=== PATIENT | female | born 1960 | race Caucasian/White ===

== ENCOUNTER 2021-09-03 13:33 | Emergency (ER) | payer SELFPAY ==
--- OUTSIDE RECORDS SUMMARY | 2021-09-03 13:36 | XMS REPORT | Continuity of Care Document ---
:1960 Author Organization [facility] t Address [address] [place] [address] Care Team Providers Name Role Phone TRIP Primary Care Physician Unavailable Jovita YOUNG, G Attending Clinician Shavonne HUSSEIN Attending Clinician Unavailable Connie GEE, M Attending Clinician Unavailable Nancie Amin Attending Clinician Unavailable Physician, Primary or Family Admitting Clinician Unavailabl e Payers Payer Name Policy Type Policy Number Effective Date Expiration Date S mannie HIM SASHAETTER FROM [id number] 2021 [facility] 00:00:00 Problems Condition Condition Condition Status Onset Resolution Last Treating Co mments Source Name Details Category Date Date Treatment Clinician Date No known No known Disease Unive rs active active ity of problems problems [facility] Allergies, Adverse Reactions, Alerts Allergy Allergy Status Severity Reaction(s) Onset Inactive Treating Comm ents Source Name Type Date Date Clinician Tramadol Propensi Active Unknown - HEADACHE U nivers ty to See comments 04-30 ity of adverse 00:00: [place] reaction 00 Medical s Branch TRAMADOL DRUG Active Unknown-Cmnt Un devin INGREDI 9 ity of 00:00: [place] 00 Medical Branch No Known DA Active [facility] Allergie 6-27 Clear s 00:00: [place] 00 [facility] No Known DA Active U [facility] Allergie 6-27 Clear s 00:00: [place] 00 [facility] Hay Propensi Active Unknown - 2011-08 Per pt Unive rs Fever ty to See comments 0-06 seasonal it y of And adverse 00:00: grass [place] Allergy reaction 00 weeds Medical Relief s Branch HAY DRUG Active Unknown-Cmnt 2011-08 Univ ers FEVER 0-06 ity of AND 00:00: [place] ALLERGY 00 Medical RELIEF Branch Social History Social Habit Start Date Stop Date Quantity Comments Source History SDOH University o f Alcohol Frequency [place] M edical [facility] History SDMS University o f Alcohol Std [place] [facility] Drinks Branch History SDMS University o f Alcohol Binge [place] [facility] al Branch Exposure to Not sure [facility] SARS-CoV-2 [place] Medical (event) Branch Alcohol intake 2012-05-09 2012-05-09 Current University of 00:00:00 00:00:00 non-drinker of [facility] [place] alcohol Branch (finding) Alcohol Comment 2012-05-09 2012-05-09 used to drink as Uni versity of 00:00:00 00:00:00 a teenager [facility] Sex Ass[birth year] At [birth year] Universit y of 00:00:00 00:00:00 [facility] Smoking Status Start Date Stop Date Source Never smoker [facility] Branch Medications Ordered Filled Start Stop Current Ordering Indication Dosage Frequency Signature Comments Components Source Medication Medication Date Date Medication? Clinician (SIG) Name Name HYDROcodone 2011-08 Yes 1{tbl} Take 1 Tab Univers -acetaminop 0-06 by mouth 2 it y of hen (NORCO) 12:50: (two) [place] 5-325 mg 15 times Medical tablet daily. Branch traMADOL 2011-08 Yes 50mg Take 50 mg Uni vers (ULTRAM) 50 0-06 by mouth ity of mg tablet 12:50: every 6 [place] 15 (six) Medical hours as Branch needed. psyllium 2011-08 Yes 6g Take 6 g Unive rs (METAMUCIL) 0-06 by mouth ity of 0.52 gram 12:50: daily. [place] capsule 15 Medical Branch traZODONE 2011-08 Yes 150mg Take 150 Uni vers (DESYREL) 0-06 mg by ity of 100 mg 12:50: mouth at [place] tablet 15 bedtime. Medical Branch ALPRAZolam 2011-08 Yes 1mg Take 1 mg Un devin (XANAX) 1 0-06 by mouth 3 ity of mg tablet 12:50: (three) [place] 15 times Medical daily. Branch gabapentin 2011-08 Yes 300mg Take 300 Un devin (NEURONTIN) 0-06 mg by ity of 300 mg 12:50: mouth 2 [place] tablet 15 (two) Medical times Branch daily. prednisoLON 2011-08 Yes 1[drp] Place 1 U nivers E acetate 0-06 Drop in ity of (PRED-FORTE 12:50: right [place] ) 1 % 15 4 (four) Medical ophthalmic times Branch suspension daily. drops ALPRAZolam 2011-08 Yes 1mg Take 1 mg Un devin (XANAX) 1 0-06 by mouth 3 ity of mg tablet 12:50: (three) [place] 15 times Medical daily. Branch gabapentin 2011-08 Yes 300mg Take 300 Un devin (NEURONTIN) 0-06 mg by ity of 300 mg 12:50: mouth 2 [place] tablet 15 (two) Medical times Branch daily. prednisoLON 2011-08 Yes 1[drp] Place 1 U nivers E acetate 0-06 Drop in ity of (PRED-FORTE 12:50: right eye [place] ) 1 % 15 4 (four) Medical ophthalmic times Branch suspension daily. drops citalopram 2011-08 Yes 40mg Take 40 mg U nivers (CELEXA) 40 0-06 by mouth ity of mg tablet 12:50: daily. [place] [address] Medical Branch omeprazole 2011-08 Yes 40mg Take 40 mg U nivers (PRILOSEC) 0-06 by mouth ity o f 40 mg 12:50: daily. [place] capsule Medical Branch HYDROcodone 2011-08 Yes 1{tbl} Take 1 Tab Univers -acetaminop 0-06 by mouth 2 it y of hen (NORCO) 12:50: (two) [place] 5-325 mg 15 times Medical tablet daily. Branch citalopram 2011-08 Yes 40mg Take 40 mg U nivers (CELEXA) 40 0-06 by mouth ity of mg tablet 12:50: daily. [place] [address] Medical Branch traMADOL 2011-08 Yes 50mg Take 50 mg Uni vers (ULTRAM) 50 0-06 by mouth ity of mg tablet 12:50: every 6 [place] 15 (six) Medical hours as Branch needed. psyllium 2011-08 Yes 6g Take 6 g Unive rs (METAMUCIL) 0-06 by mouth ity of 0.52 gram 12:50: daily. [place] capsule 15 Medical Branch traZODONE 2011-08 Yes 150mg Take 150 Uni vers (DESYREL) 0-06 mg by ity of 100 mg 12:50: mouth at [place] tablet 15 bedtime. [facility] Branch omeprazole 2011-08 Yes 40mg Take 40 mg U nivers (PRILOSEC) 0-06 by mouth ity o f 40 mg 12:50: daily. [place] capsule 15 [facility] Vital Signs Vital Name Observation Time Observation Value Comments Source Systolic blood 2021-05-01 03:00:00 123 [facility] Diastolic blood 2021-05-01 03:00:00 78 mm[Hg] [facility] [place] Heart rate 2021-05-01 03:00:00 78 /min [facility] Respiratory rate 2021-05-01 03:00:00 26 /min [facility] Oxygen saturation in 2021-05-01 03:00:00 98 /min [facility] Arterial blood by [facility] [place] Pulse oximetry [place] Body temperature 2021-05-01 01:44:00 37.56 Vandana [facility] Body height 2021-05-01 01:44:00 177.8 cm [facility] Body weight 2021-05-01 01:44:00 83.915 kg [facility] BMI 2021-05-01 01:44:00 26.54 kg/m2 [facility] Procedures Procedure Date / Time Performed Performing Clinician Sourc e MAGNESIUM 2021-05-01 02:33:00 Hoa Hussein [facility] TROPONIN I 2021-05-01 02:33:00 Hoa Hussein [facility] COMP. METABOLIC PANEL 2021-05-01 02:33:00 Hoa Hussein [facility] ([id number]) [facility] CBC WITH DIFF 2021-05-01 02:33:00 Hoa Hussein [facility] URINALYSIS 2021-05-01 02:33:00 Hoa Hussein [facility] N-TERMINAL PRO-BNP 2021-05-01 02:33:00 Hoa Hussein [facility] NOTICE OF PRIVACY 2021-05-01 01:37:44 Doctor Unassigned, No Univ [facility] PRACTICES Name Medical Branch CONSENT/REFUSAL FOR 2021-05-01 01:37:01 [facility] Name Medical Branch TREATMENT Encounters Start End Encounter Admission Attending Care Care Encounter Source Date/Time Date/Time Type Type Clinicians Facility Department ID 2021-04-30 2021-04-30 Emergency [facility] [id number] Univers 20:49:00 23:18:00 [id number] [id number] [facility] 084 Branch 2021-04-30 2021-04-30 Emergency X [facility] ERT [id number] Univers 20:49:00 23:18:00 HOA valdez [facility] 2021-04-30 2021-04-30 Nurse Omayra Rosales [id number] Univers 00:00:00 00:00:00 Triage SERGE [id number] [facility] [id number] [facility] [id number] [facility] 019 Branch 2021-01-28 2021-01-28 Emergency EM KEVIN Amin SANJUANITA [id number] [facility] 18:49:00 21:59:00 Shaun [id number] [facility] Results Test Description Test Time Test Comments Results Result Comments Source TROPONIN I 2021-05-01 03:09:09 Test Item Value Reference Range Interpretation Comme nts TROPONIN I (test code = 0.001 ng/mL See_Comment [Au tomated message] The [id number]) system which ge nerated this result tra nsmitted reference range : <=0.034. The reference r radha was not used to int erpret this result as normal/abnormal . LIAN (test code = LIAN) Reference (Normal) Range (defined by the 99th percentile reference limit): <= 0.034 ng/mL Note: Cardiac troponin begins to rise 3-4 hours after the onset of ischemia. Repeat in 4-6 hours if the sample was drawn within 3-4 hours of the onset of the symptom and found normal. Diagnosis of myocardial injury is made with acute changes in cTn concentrations with at least one serial sample above the 99th percentile upper reference limit (URL), taken together with the patient's clinical presentation. Biotin has been reported to cause a negative bias, interpret results relative to patient's use of biotin. Lab Interpretation Normal (test code = 93836-8) [facility] [id number] 03:06:10 Test Item Value Reference Range Interpretation Comments NT-proBNP (test code 296 pg/mL See_Comment H [Autom ated = 3031805996) message] The system which generated this result transmitted reference range : <=125. The reference range was not used to interpret this result as normal/abnormal . LIAN (test code = LIAN) Biotin has been reported to cause a negative bias, interpret results relative to patient's use of biotin. Lab Interpretation Abnormal (test code = 25231-9) [facility] (25583)2021-05-01 02:59:06 Test Item Value Reference Range Interpretation Comments NA (test code = 138 mmol/L 135-145 3703268632) K (test code = 3.9 mmol/L 3.5-5.0 7834474523) CL (test code = 104 mmol/L 98-108 5247003579) CO2 TOTAL (test code = 26 mmol/L 23-31 2524740698) AGAP (test code = 2-16 4100221952) BUN (test code = 24 mg/dL 7-23 H 3591580908) GLUCOSE (test code = 100 mg/dL 70-110 8271401173) CREATININE (test code = 0.80 mg/dL 0.50-1.04 8190162381) TOTAL BILI (test code = 0.4 mg/dL 0.1-1.3 9248282081) CALCIUM (test code = 9.6 mg/dL 8.6-10.6 9456674812) T PROTEIN (test code = 7.4 g/dL 6.3-8.2 9991927957) ALBUMIN (test code = 4.4 g/dL 3.5-5.0 2758237513) ALK PHOS (test code = 76 U/L 34-122 8617882763) ALTv (test code = 16 U/L 1742-6) AST(SGOT) (test code = 24 U/L 13-40 7803961987) eGFR (test code = mL/min/1.73m2 6072081242) LIAN (test code = LIAN) Association of Glomerular Filtration Rate (GFR) and Staging of Kidney Disease* + --+ --+ ------+| GFR (mL/min/1.73 m2) ?| With Kidney Damage ?| ?Without Kidney Damage+ --------+ --------+ +| ?>90 ?| ?Stage one ?| ? Normal ?+ ---+ ---+ -------+| ?60-89 ?| ?Stage two ?| ? Decreased GFR ? + --+ --+ ------+| ?30-59 ?| ?Stage three ?| ? Stage three ? + --+ --+ ------+| ?15-29 ?| ?Stage four ? | ? Stage four ?+ ---+ ---+ -------+| ?<15 (or dialysis) ? ?| ?Stage five ? | ? Stage five ?+ ---+ ---+ -------+ *Each stage assumes the associated GFR level has been in effect for at least three months. ?Stages 1 to 5, with or without kidney disease, indicate chronic kidney disease. Notes: Determination of stages one and two (with eGFR >59mL/min/1.73 m2) requires estimation of kidney damage for at least three months as defined by structural or functional abnormalities of the kidney, manifested by either:Pathological abnormalities or Markers of kidney damage (including abnormalities in the composition of the blood or urine or abnormalities in imaging tests). Lab Interpretation Abnormal (test code = 49679-0) [facility]2021-[facility] 02:59:06 Test Item Value Reference Range Interpretation Comments MAGNESIUM (test code = 4464258026) 2.3 mg/dL 1.7-2.4 Lab Interpretation (test code = Normal 49040-9) [facility] WITH [id number] 02:52:46 Test Item Value Reference Range Interpretation Comments WBC (test code = See_Comment [Automated 0090-2) message] The sy stem which generated this result transmitted reference range : 4.30 - 11.10 10*3/?L. The reference range was not used to interpret this result as normal/abnormal . RBC (test code = See_Comment [Automated 789-8) message] The sy stem which generated this result transmitted reference range : 3.93 - 5.25 10*6/?L. The reference range was not used to interpret this result as normal/abnormal . HGB (test code = 12.0 g/dL 11.6-15.0 718-7) HCT (test code = 37.5 % 35.7-45.2 4544-3) MCV (test code = 87.4 fL 80.6-95.5 787-2) MCH (test code = 28.0 pg 25.9-32.8 785-6) MCHC (test code = 32.0 g/dL 31.6-35.1 786-4) RDW-SD (test code = 47.8 fL 39.0-49.9 02100-8) RDW-CV (test code = 14.8 % 12.0-15.5 788-0) PLT (test code = See_Comment H [Automated 777-3) message] The sy stem which generated this result transmitted reference range : 166 - 358 10*3/ ?L. The reference r radha was not used to interpret this result as normal/abnormal . MPV (test code = 10.5 fL 9.5-12.9 73383-5) NRBC/100 WBC (test See_Comment [Automat ed code = 0950672986) message] The system which generated this result transmitted reference range : 0.0 - 10.0 /100 WBCs. The refer ence range was not u sed to interpret th is result as normal/abnormal . NRBC x10^3 (test code <0.01 See_Comment [Auto mated = 6514072280) message] The s ystem which generated this result transmitted reference range : 10*3/?L. The reference range was not used to interpret this result as normal/abnormal . GRAN MAT (NEUT) % 48.8 % (test code = 770-8) IMM GRAN % (test code 0.50 % = 9542884209) LYMPH % (test code = 40.7 % 736-9) MONO % (test code = 9.6 % 5905-5) EOS % (test code = 0.0 % 713-8) BASO % (test code = 0.4 % 706-2) GRAN MAT x10^3(ANC) 3.69 10*3/uL 1.88-7.09 (test code = 2948635551) IMM GRAN x10^3 (test 0.04 10*3/uL 0.00-0.06 code = 1770376215) LYMPH x10^3 (test code 3.08 10*3/uL 1.32-3.29 = 731-0) MONO x10^3 (test code 0.73 10*3/uL 0.33-0.92 = 742-7) EOS x10^3 (test code = <0.03 0.03-0.39 L 711-2) BASO x10^3 (test code 0.03 10*3/uL 0.01-0.07 = 704-7) Lab Interpretation Abnormal (test code = 26946-0) [facility] PELVIS [id number] 20:40:00 [facility] : 1960 Sex: F Name: GIO ESTRELLA [facility] : 1960 Age/S: 60 / F [address] [place] [address] Unit #: [id number] Loc: [place] [address] Phys: Shaun Amin MD Acct: [id number] Dis Date: Status: REG ER PHONE #: [phone] Exam Date: 01/28/20212018 FAX #: [phone] Reason: n/v, constipation. hx molly and EMANUEL, eval sbo EXAMS: CPT CODE: [id number] CT ABD PELVIS W/CONT 28455 CT abdomen and pelvis with contrast dated 01/28/2021 INDICATION: Nausea and vomiting. Possible small bowel obstruction. COMPARISON: None. TECHNIQUE: A CT of the abdomen pelvis was performed using helical images from the thoracic outlet through the pubicsymphysis with subsequent sagittal and coronal reconstruction. IV CONTRAST: 100 cc ofIsovue-300 GI CONTRAST: None. CT imaging performed at this location utilizes radiation dose optimization techniques which include one or more of the followin) Automated exposure control; 2) Adjustment of mA and/or kV; 3) Use of iterative reconstructive technique. CT radiation dose DLP (mGy-cm): 775. FINDINGS: SOLID ORGANS: No acute CT abnormalities of the liver, spleen, pancreas, adrenal glands or kidneys are detected. There is no CT evidence of acute renal collecting system obstruction or calcified renal collecting system stone. BILIARY: The patient is status post cholecystectomy. 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 BOWEL: Bowel assessment is limited by the absence of bowel contrast. No gross abnormalities of the stomach or duodenum are identified. No small bowel dilatation is present to suggest obstruction. The appendix is well visualized and is not acutely inflamed. Several diverticula of the sigmoid colon are noted. There is no evidence of acute diverticulitis, acute inflammatory colonic wall thickening or colonic obstruction. PERITONEUM: There is no evidence of free intraperitoneal air or significant free intraperitoneal fluid. RETROPERITONEUM: The abdominal aorta demonstrates no evidence of aneurysm or dissection. There is no evidence of retroperitoneal mass or adenopathy. PELVIS: The patient is status posthysterectomy. The ovaries are not PAGE 1 Signed Report (CONTINUED) Name: GIO ESTRELLA [facility] : 1960 Age/S: 60 / F [address] [place] [address] Unit #: [id number] Loc: [place] [address] Phys: Shaun Amin MD Acct: [id number] Dis Date: Status: REG ER PHONE #: [phone] Exam Date: 01/28/20212018 FAX #: [phone] Reason: n/v, constipation. hx molly and EMANUEL, eval sbo EXAMS: CPT CODE: [id number] CT ABD PELVIS W/CONT 55025 < Continued> identified and may be surgically absent. No adnexal masses or enlarged pelvic lymph nodes are identified. The bladder has an unremarkable appearance. LOWER CHEST: The lung bases appear clear of acute disease. ADDITIONAL FINDINGS: None. IMPRESSION: 1. No acute CT abnormalities of the abdomen or pelvis are detected. SL: 131 at 2039 Reported and signed by: Nhan Oropeza M.D. CC: Shaun Amin MD Technologist:Akbar Marshall, RT(R)(CT) CTDI: DLP: Trnscb Date/Time: 01/28/2021 (2039) Robin Orig Print D/T: S: 01/28/2021 (2043) PAGE 2 Signed ReportCOMPREHENSIVE METABOLIC [id number] 20:11:00 Test Item Value Reference Range Interpretation Comments SODIUM (test code = NA) 138 mEq/L 134-147 N POTASSIUM (test code = 3.8 mEq/L 3.4-5.0 N K) CHLORIDE (test code = 103 mEq/L 100-108 N CL) CARBON DIOXIDE (test 28 mEq/l 21-33 N code = CO2) ANION GAP (test code = 11 0-20 N GAP) GLUCOSE (test code = 93 mg/dL 70-110 N GLU) BLOOD UREA NITROGEN 10 mg/dL 7-18 N (test code = BUN) GLOMERULAR FILTRATION 56.6 80-90 L Units of measure = RATE (test code = GFR) ml/mi n/1.73 m2 CREATININE (test code = 1.0 mg/dL 0.6-1.3 N CREAT) TOTAL PROTEIN (test 7.7 g/dL 6.4-8.2 N code = PROT) ALBUMIN (test code = 4.20 g/dL 3.4-5.0 N ALB) CALCIUM (test code = 10.0 mg/dL 8.0-10.5 N CA) BILIRUBIN TOTAL (test 0.40 mg/dL 0.0-1.0 N code = BILT) SGOT/AST (test code = 18 IUnit/L 15-37 N AST) SGPT/ALT (test code = 14 IUnit/L 30-65 L ALT) ALKALINE PHOSPHATASE 98 IUnit/L 20-125 N TOTAL (test code = ALKP) [id number] 20:11:00 Test Item Value Reference Range Interpretation Comments LIPASE (test code = LIP) 44 U/L 13-57 N [id number] 20:11:00 Test Item Value Reference Range Interpretation Comments TROPONIN-I < 0.006 ng/mL 0.000-0.045 N Negative: <= (test code = 0.045 Positive: TROPI) >= 0.046 Correl ation with serial results, other cardiac markers andclinical findings is nec essary to determine the clinicalsignifi cance of this result. Results using different metho dologies should not be c omparedto one another as linda titative results may richa y by method. COMPREHENSIVE METABOLIC [id number] 20:07:00 Test Item Value Reference Range Interpretation Comments SODIUM (test code = NA) 138 mEq/L 134-147 N POTASSIUM (test code = 3.8 mEq/L 3.4-5.0 N K) CHLORIDE (test code = 103 mEq/L 100-108 N CL) CARBON DIOXIDE (test 28 mEq/l 21-33 N code = CO2) ANION GAP (test code = 11 0-20 N GAP) GLUCOSE (test code = 93 mg/dL 70-110 N GLU) BLOOD UREA NITROGEN 10 mg/dL 7-18 N (test code = BUN) GLOMERULAR FILTRATION 56.6 80-90 L Units of measure = RATE (test code = GFR) ml/mi n/1.73 m2 CREATININE (test code = 1.0 mg/dL 0.6-1.3 N CREAT) TOTAL PROTEIN (test g/dL 6.4-8.2 code = PROT) ALBUMIN (test code = g/dL 3.4-5.0 ALB) CALCIUM (test code = 10.0 mg/dL 8.0-10.5 N CA) BILIRUBIN TOTAL (test mg/dL 0.0-1.0 code = BILT) SGOT/AST (test code = IUnit/L 15-37 AST) SGPT/ALT (test code = IUnit/L 30-65 ALT) ALKALINE PHOSPHATASE IUnit/L 20-125 TOTAL (test code = ALKP) [id number] 20:07:00 Test Item Value Reference Range Interpretation Comments LIPASE (test code = LIP) U/L 13-57 [id number] 20:07:00 Test Item Value Reference Range Interpretation Comments TROPONIN-I < 0.006 ng/mL 0.000-0.045 N Negative: <= (test code = 0.045 Positive: TROPI) >= 0.046 Correl ation with serial results, other cardiac markers andclinical findings is nec essary to determine the clinicalsignifi cance of this result. Results using different metho dologies should not be c omparedto one another as linda titative results may richa y by method. UA RFLX MICR CULT IF [id number] 20:00:00 Test Item Value Reference Range Interpretation Comments UA COLOR (test code = COLU) YELLOW YEL/STRAW UA APPEARANCE (test code = CLEAR CLEAR APPU) UA GLUCOSE DIPSTICK (test code NEGATIVE NEGATIVE = DGLUU) UA BILIRUBIN DIPSTICK (test NEGATIVE NEGATIVE code = BILU) UA KETONE DIPSTICK (test code NEGATIVE NEGATIVE = KETU) UA SPECIFIC GRAVITY (test code 1.005 1.005-1.030 N = SGU) UA BLOOD DIPSTICK (test code = NEGATIVE NEGATIVE JIMENEZ) UA PH DIPSTICK (test code = 9.0 5.0-7.0 H DARNELL) UA PROTEIN DIPSTICK (test code NEGATIVE NEGATIVE = PROU) UA UROBILINIOGEN DIPSTICK 0.2 mg/dL 0.2-1.0 (test code = URO) UA NITRITE DIPSTICK (test code NEGATIVE NEGATIVE = GORDO) UA LEUKOCYTE ESTERASE DIPSTICK TRACE NEGATIVE A (test code = LEUU) UA WBC (test code = WBCU) 4-9 WBC/HPF 0-3 A UA RBC (test code = RBCU) 0-3 RBC/HPF 0-3 UA WBC NO REFLEX (test code = 4-9 WBC/HPF 0-3 A WBCUCL) UA BACTERIA (test code = BACU) NONE SEEN /HPF NONE SEEN UA SQUAMOUS CELLS (test code = 0-5 /HPF NONE SEEN SQU) Indication for culture: Dysuria/FrequencySpecimen Description: CLEAN CATCH CBC W/AUTO [id number] 19:55:00 Test Item Value Reference Range Interpretation Comments WHITE BLOOD CELL (test code = 7.5 x10 3/uL 4.5-11.0 N WBC) RED BLOOD CELL (test code = 4.53 x10 6/uL 3.54-5.02 N RBC) HEMOGLOBIN (test code = HGB) 12.2 g/dL 11.0-15.0 N HEMATOCRIT (test code = HCT) 38.0 % 33.0-45.0 N MEAN CELL VOLUME (test code = 83.9 fL 81.0-99.0 N MCV) MEAN CELL HGB (test code = MCH) 26.9 pg 27.0-33.0 L MEAN CELL HGB CONCETRATION 32.1 g/dL 33.0-37.0 L (test code = MCHC) RED CELL DISTRIBUTION WIDTH CV 15.2 % 11.5-14.5 H (test code = RDW) RED CELL DISTRIBUTION WIDTH SD 46.0 fL 37.0-54.0 N (test code = RDW-SD) PLATELET COUNT (test code = 404 x10 3/uL 150-400 H PLT) MEAN PLATELET VOLUME (test code 10.0 fL 7.0-9.0 H = MPV) NEUTROPHIL % (test code = NT%) 49.0 % 56.0-77.0 L IMMATURE GRANULOCYTE % (test 0.3 % 0.0-2.0 N code = IG%) LYMPHOCYTE % (test code = LY%) 40.1 % 14.0-32.0 H MONOCYTE % (test code = MO%) 10.1 % 4.8-9.0 H EOSINOPHIL % (test code = EO%) 0.0 % 0.3-3.7 L BASOPHIL % (test code = BA%) 0.5 % 0.0-2.0 N NUCLEATED RBC % (test code = 0.0 % 0-0 N NRBC%) NEUTROPHIL # (test code = NT#) 3.65 x10 3/uL 2.0-7.6 N IMMATURE GRANULOCYTE # (test 0.02 x10 3/uL 0.00-0.03 N code = IG#) LYMPHOCYTE # (test code = LY#) 2.99 x10 3/uL 1.0-3.8 N MONOCYTE # (test code = MO#) 0.75 x10 3/uL 0.1-0.8 N EOSINOPHIL # (test code = EO#) 0.00 x10 3/uL 0.0-0.2 N BASOPHIL # (test code = BA#) 0.04 x10 3/uL 0.0-0.2 N NUCLEATED RBC # (test code = 0.00 x10 3/uL 0.0-0.1 N NRBC#) MANUAL DIFF REQUIRED (test code NO = MDIFF) CBC W/AUTO [id number] 19:52:00 Test Item Value Reference Range Interpretation Comments WHITE BLOOD CELL (test code = WBC) x10 3/uL 4.5-11.0 RED BLOOD CELL (test code = RBC) x10 6/uL 3.54-5.02 HEMOGLOBIN (test code = HGB) 12.2 g/dL 11.0-15.0 N HEMATOCRIT (test code = HCT) 38.0 % 33.0-45.0 N MEAN CELL VOLUME (test code = MCV) fL 81.0-99.0 MEAN CELL HGB (test code = MCH) pg 27.0-33.0 MEAN CELL HGB CONCETRATION (test g/dL 33.0-37.0 code = MCHC) RED CELL DISTRIBUTION WIDTH CV % 11.5-14.5 (test code = RDW) PLATELET COUNT (test code = PLT) x10 3/uL 150-400 NEUTROPHIL % (test code = NT%) % 56.0-77.0 LYMPHOCYTE % (test code = LY%) % 14.0-32.0 NEUTROPHIL # (test code = NT#) x10 3/uL 2.0-7.6 LYMPHOCYTE # (test code = LY#) x10 3/uL 1.0-3.8 MANUAL DIFF REQUIRED (test code = MDIFF)"
--- NOTE | 2021-09-03 15:55 | RAD REPORT ---
EXAM DESCRIPTION: RAD - Wrist Right 3 View - 09/03/2021 3:38 pm CLINICAL HISTORY: fall 3 weeks ago;Pain COMPARISON: No comparisons FINDINGS/IMPRESSION: No acute fracture. No malalignment. No significant focal degenerative changes.
--- NOTE | 2021-09-03 15:56 | RAD REPORT ---
EXAM DESCRIPTION: RAD - Knee Right 3 View - 09/03/2021 3:38 pm CLINICAL HISTORY: fall 3 weeks ago;Pain COMPARISON: No comparisons FINDINGS: No acute fracture. No malalignment. No significant focal degenerative changes. Small nonsp ecific knee effusion. IMPRESSION: No acute osseous abnormality involving the right knee.
--- NOTE | 2021-09-03 16:12 | ER ---
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 Reports that jh6 she landed on concrete and has had swelling and pain to rt knee. Coronavirus screen: Vaccine status: Patient reports receiving the 2nd dose of the covid vaccine. Ebola Screen: Patient denies travel to an Ebola-affected area in the 21 days before illness onset. Initial Sepsis Screen: Does the patient meet any 2 criteria? No. Patient's initial sepsis screen is negative. Does the patient have a suspected source of infection? No. Patient's initial sepsis screen is negative. Risk Assessment: Do you want to hurt yourself or someone else? Patient reports no desire to harm self or others. Onset of symptoms was August 14, 2021. 13:50 Method Of Arrival: Ambulatory [facility] 13:50 Acuity: GRADY 4 [facility] Triage Assessment: 13:53 General: Appears in no apparent distress. Behavior is calm, cooperative. Pain: 6 Complains of pain in right leg Pain currently is 1 out of 10 on a pain scale. Quality of pain is described as sharp. Historical: - Allergies: 13:52 Tramadol HCl; [facility] - Immunization history:: Adult Immunizations up to date, Client reports receiving the 2nd dose of the Covid vaccine. - Social history:: Smoking status: Patient reports the use of cigarette tobacco products, Patient denies any tobacco usage or history of. Screenin:54 Abuse screen: Denies threats or abuse. Nutritional screening: No deficits noted. [facility] Tuberculosis screening: No symptoms or risk factors identified. Fall Risk None identified. Assessment: 16:27 Reassessment: Patient appears in no apparent distress at this time. No changes from ld1 previously documented assessment. Patient and/or family updated on plan of care and expected duration. Pain level reassessed. Patient is alert, oriented x 3, equal unlabored respirations, skin warm/dry/pink. Vital Signs: 13:50 BP 145 / 74; Pulse 70; Resp 18; Temp 98.4; Pulse Ox 100% on R/A; Weight 77.11 kg; 6 Height 5 ft. 0 in. (152.40 cm); Pain 1/10; 13:50 Body Mass Index 33.20 (77.11 kg, 152.40 cm) [facility] ED Course: 13:36 Patient arrived in ED. am2 13:36 Rafael Magana MD is Private Physician. am2 13:52 Triage completed. [facility] 14:36 Gutierrez Williamson PA is PHCP. cp 14:36 Cliff Seals MD is Attending Physician. cp 15:38 XRAY Knee RIGHT 3 view In Process Unspecified. EDMS 15:38 XRAY Wrist RIGHT 3 view In Process Unspecified. EDMS 15:49 Velcro wrist splint applied to right wrist. mh5 15:50 Patient has correct armband on for positive identification. Bed in low position. Call 5 light in reach. 16:10 Willard Buck MD is Referral Physician. cp 16:15 Samia Perez, MARLEN is Primary Nurse. 16:27 No provider procedures requiring assistance completed. Patient did not have IV access ld1 during this emergency room visit. 16:27 Arm band placed on right wrist. ld1 Administered Medications: No medications were administered Outcome: 16:12 Discharge ordered by MD. cp 16:27 Discharged to home ambulatory. ld1 16:27 Condition: stable 16:27 Discharge instructions given to patient, Instructed on discharge instructions, follow up and referral plans. Demonstrated understanding of instructions, follow-up care. 16:28 Patient left the ED. ld1 Addendum: 09/05/2021 13:13 Addendum: COVID-19 Result: Negative result given to RN to notify pt. Contacted by: alber Buchanan RN. Signatures: Dispatcher [employer] María Garber RN RN Samia Perez RN RN Gutierrez Williamson PA PA Beena Pena [facility] Rosmery Coates am2 Estefanía Rodríguez RN RN 1 Valarie Clarke RN RN [facility]
--- NOTE | 2021-09-03 16:13 | EDPHYS ---
Physician Documentation [facility] Name: Debbie Albright Age: 61 yrs Sex: Female : 1960 Arrival Date: 09/03/2021 Time: 13:36 Bed DX1 Private MD: Rafael Magana ED Physician Cliff Seals HPI: 09/03 15:05 This 61 yrs old Female presents to ER via Ambulatory with complaints of Fall Injury, cp Knee Pain - swelling. 15:05 Details of fall: The patient fell from an upright position, while walking. Onset: The cp symptoms/episode began/occurred 3 week(s) ago. Associated injuries: The patient sustained right knee, painful injury, right wrist, painful injury. Severity of symptoms: in the emergency department the symptoms are unchanged, despite home interventions. Historical: - Allergies: 13:52 Tramadol HCl; jh6 - Immunization history:: Adult Immunizations up to date, Client reports receiving the 2nd dose of the Covid vaccine. - Social history:: Smoking status: Patient reports the use of cigarette tobacco products, Patient denies any tobacco usage or history of. ROS: 15:10 Constitutional: Negative for chills, fever, poor PO intake. cp 15:10 Respiratory: Negative for cough. cp 15:10 MS/extremity: Positive for pain, tenderness, of the right wrist and right knee, Negative for decreased range of motion, deformity. 15:10 Neuro: Negative for altered mental status, headache. 15:10 All other systems are negative. Exam: 15:30 Head/Face: Normocephalic, atraumatic. cp 15:30 Constitutional: The patient appears in no acute distress, alert, awake, non-toxic, well developed, well nourished. 15:30 ENT: External ear(s): are unremarkable, Nose: is normal, Posterior pharynx: Airway: no evidence of obstruction, patent, Tonsils: no enlargement, no erythema, no exudate, Voice: is normal. 15:30 Chest/axilla: Inspection: normal. 15:30 Cardiovascular: Rate: normal. 15:30 Respiratory: the patient does not display signs of respiratory distress, Respirations: normal, no use of accessory muscles, no retractions, labored breathing, is not present. 15:30 Musculoskeletal/extremity: Extremities: grossly normal except: noted in the right wrist: pain, There is no evidence of decreased ROM, deformity, noted in the right knee: pain, tenderness, no evidence of decreased ROM, deformity, joint line tenderness, ROM: limited active range of motion due to pain, in the right wrist and right knee. Vital Signs: 13:50 BP 145 / 74; Pulse 70; Resp 18; Temp 98.4; Pulse Ox 100% on R/A; Weight 77.11 kg; 6 Height 5 ft. 0 in. (152.40 cm); Pain 1/10; 13:50 Body Mass Index 33.20 (77.11 kg, 152.40 cm) [facility] MDM: 14:36 Patient medically screened. cp 16:10 Data reviewed: vital signs, nurses notes, radiologic studies, plain films. cp 16:10 Differential diagnosis: contusion, fracture, sprain, strain. Test interpretation: by ED cp physician or midlevel provider: plain radiologic studies. ED course: Patient c/o runny nose, sore throat and would like testing for COVID-19. 16:11 Counseling: I had a detailed discussion with the patient and/or guardian regarding: the cp historical points, exam findings, and any diagnostic results supporting the discharge/admit diagnosis, radiology results, to return to the emergency department if symptoms worsen or persist or if there are any questions or concerns that arise at home. 16:11 Response to treatment: the patient's symptoms have mildly improved after treatment, and cp as a result, I will discharge patient. 09/03 16:19 Order name: COVID 19 CPL (Document "Date of Onset" if Symptomatic) cp 09/03 15:01 Order name: XRAY Knee RIGHT 3 view; Complete Time: 15:58 cp 09/03 15:58 Interpretation: Report reviewed. cp 09/03 15:01 Order name: XRAY Wrist RIGHT 3 view; Complete Time: 15:58 cp 09/03 15:58 Interpretation: Report reviewed. cp 09/03 15:44 Order name: Wrist Splint; Complete Time: 15:49 cp Administered Medications: No medications were administered Disposition: 16:20 Chart complete. cp 09/04 09:11 Co-signature as Attending Physician, Cliff Seals MD. rn Disposition Summary: 09/03/21 16:12 Discharge Ordered Location: Home cp Problem: new cp Symptoms: have improved cp Condition: Stable cp Diagnosis - Pain in right knee - from fall cp - Pain in right wrist - from fall cp - Acute upper respiratory infection, unspecified cp Followup: cp - With: Willard Buck MD - When: 2 - 3 days - Reason: right knee pain and right wrist pain Discharge Instructions: - Discharge Summary Sheet cp - Wrist Pain, Adult cp - Acute Knee Pain, Adult cp - COVID-19 cp - COVID-19: What Your Test Results Mean - [facility] cp - 3 Kee Steps to Take While Waiting for Your COVID-19 Test Result - [facility] cp - 10 Things You Can Do to Manage Your COVID-19 Symptoms at Home - [facility] cp - COVID-19: Quarantine vs. Isolation - [facility] cp Forms: - Medication Reconciliation Form cp - Thank You Letter cp - Antibiotic Education cp - Prescription Opioid Use cp Prescriptions: - Diclofenac Sodium 75 mg Oral Tablet Sustained Release - take 1 tablet by ORAL route 2 times per day; 30 tablet; Refills: 0, Product cp Selection Permitted Signatures: Dispatcher [employer] EDCliff Barragan MD MD rn Gutierrez Williamson PA PA cp Valarie Clarke, RN RN jh6
[2021-09-03 16:55] VITALS: BP 145/74; TEMP 98.4; O2SAT 100
== END 2021-09-03 16:28 | disposition home or self-care (01) ==
LOC: ER 13:33
PROC: 2W3CX1Z Immobilization of Right Lower Arm using Splint (ICD-10-PCS; principal; 2021-09-03)
DX: M25.561 Pain in right knee (principal); M25.531 Pain in right wrist; W19.XXXA Unspecified fall, initial encounter; J06.9 Acute upper respiratory infection, unspecified; F17.210 Nicotine dependence, cigarettes, uncomplicated; Z88.6 Allergy status to analgesic agent; Z20.822 Contact with and (suspected) exposure to COVID-19
CPT/HCPCS: 99283; U0002

== ENCOUNTER 2021-12-19 11:03 | Emergency (ER) | payer SELFPAY ==
--- OUTSIDE RECORDS SUMMARY | 2021-12-19 11:06 | XMS REPORT | Continuity of Care Document ---
:1960 Author Organization [facility] t Address [address] [place] [address] Care Team Providers Name Role Phone TRIP Primary Care Physician Unavailable Shavonne Hussein NP Attending Clinician Shavonne HUSSEIN Attending Clinician Unavailable Nancie Amin Attending Clinician Unavailable Physician, Primary or Family Admitting Clinician Unavailabl e Payers Payer Name Policy Type Policy Number Effective Date Expiration Date S mannie HIM AMBETTER FROM [id number] 2021 [facility] 00:00:00 Problems Condition Condition Condition Status Onset Resolution Last Treating Co mments Source Name Details Category Date Date Treatment Clinician Date No known No known Disease Unive rs active active ity of problems problems [place] [facility] Allergies, Adverse Reactions, Alerts Allergy Allergy Status [...] Allergie 6-27 Clear s 00:00: Bold[place] 00 [facility] No Known DA Active U [facility] Allergie 6-27 Clear s 00:00: [place] 00 [facility] Hay Propensi Active Unknown - 2011-08 Per [...] History SDOH University o f Alcohol Frequency [place] [facility] History SDOH University o f Alcohol Std [place] [facility] Drinks Branch History SDMI University o f Alcohol Binge [place] [facility] Exposure to Not sure [facility] SARS-CoV-2 [place] [facility] (event) Branch Alcohol intake 2012-05-09 2012-05-09 Current University of 00:00:00 00:00:00 non-drinker of [facility] alcohol Branch (finding) Alcohol Comment 2012-05-09 2012-05-09 used to drink as Uni versity of 00:00:00 00:00:00 a teenager [facility] Sex Assigned At [birth year] Universit y of 00:00:00 00:00:00 [facility] Smoking Status Start Date Stop Date Source Never smoker [facility] Medical Branch Medications Ordered Filled Start Stop Current Ordering Indication Dosage Frequency Signature Comments Components Source Medication Medication Date Date Medication? Clinician (SIG) Name Name ALPRAZolam 2011-08 Yes 1mg Take 1 mg Un devin (XANAX) 1 0-06 by mouth 3 ity of mg tablet 12:50: (three) [place] 15 times Medical daily. Branch gabapentin 2011-08 [...] mouth ity of mg tablet 12:50: daily. [place] [address] Medical Branch omeprazole 2011-08 Yes 40mg Take 40 mg U nivers (PRILOSEC) 0-06 by mouth ity o f 40 mg 12:50: daily. [place] [address] Medical Branch HYDROcodone 2011-08 Yes 1{tbl} Take [...] mouth ity of 0.52 gram 12:50: daily. [place] capsule 15 Medical Branch traZODONE 2011-08 Yes 150mg Take 150 Uni vers (DESYREL) 0-06 mg by ity of 100 mg 12:50: mouth at [place] tablet 15 bedtime. [facility] Vital Signs Vital Name Observation Time Observation Value Comments Source Systolic blood 2021-05-01 03:00:00 123 mm[facility]Hg[facility] Diastolic blood 2021-05-01 03:00:00 78 mm[Hg] [facility] 2021-05-01 03:00:00 78 /min [facility] Respiratory rate 2021-05-01 03:00:00 26 /min [facility] Oxygen saturation in 2021-05-01 03:00:00 98 /min [facility] Arterial blood by [facility] Pulse oximetry [place] Body temperature 2021-05-01 01:44:00 37.56 [facility] Body height 2021-05-01 01:44:00 177.8 cm [facility] Body weight 2021-05-01 01:44:00 83.915 kg [facility] BMI 2021-05-01 01:44:00 26.54 kg/m2 [facility] Procedures Procedure Date / Time Performed Performing Clinician Sourc e MAGNESIUM 2021-05-01 02:33:00 Hoa Hussein [facility] TROPONIN I 2021-05-01 02:33:00 Hoa Hussein [facility] COMP. METABOLIC PANEL 2021-05-01 02:33:00 Hoa Hussein [facility] ([id number]) Medical Branch CBC WITH DIFF 2021-05-01 02:33:00 Hoa Hussein [facility] URINALYSIS 2021-05-01 02:33:00 Hoa Hussein [facility] N-TERMINAL PRO-BNP 2021-05-01 02:33:00 Hoa Hussein [facility] NOTICE OF PRIVACY 2021-05-01 01:37:44 Doctor Unassigned, No Univ [facility] PRACTICES Name Medical Branch CONSENT/REFUSAL FOR 2021-05-01 01:37:01 [facility], [facility] Name [facility] Branch TREATMENT Encounters Start End Encounter Admission Attending Care Care Encounter Source Date/Time Date/Time Type Type Clinicians Facility Department ID 2021-04-30 2021-04-30 Emergency [facility] [id number] Univers 20:49:00 23:18:00 Hoa Marvin [place] [id number] ititz [facility] [id number] [facility] [id number] [facility] 084 Branch 2021-04-30 2021-04-30 Emergency X [facility] ERT [id number] Univers 20:49:00 23:18:00 HOA valdez [facility] 2021-01-28 2021-01-28 Emergency EM Nwmary bethe, HCACL SANJUANITA [id number] [facility] 18:49:00 21:59:00 Shaun [id number] Cl [facility] Results Test Description Test Time Test Comments Results Result Comments Source TROPONIN I 2021-05-01 03:09:09 Test Item Value Reference Range Interpretation Comme nts TROPONIN I (test code = 0.001 ng/mL See_Comment [Au tomated message] The 3792200349) system which ge nerated this result tra [...] biotin. Lab Interpretation Normal (test code = 10969-0) [facility] [id number] 03:06:10 Test Item Value Reference Range Interpretation Comments NT-proBNP (test code 296 pg/mL See_Comment H [Autom ated = 1303025587) message] The system which generated this result transmitted reference range : <=125. The reference range was not used to interpret this result as normal/abnormal . LIAN (test code = LIAN) Biotin has been reported to cause a negative bias, interpret results relative to patient's use of biotin. Lab Interpretation Abnormal (test code = 62310-8) [facility] ([id number])2021-05-01 02:59:06 Test Item Value Reference Range Interpretation Comments NA (test code = 138 mmol/L 135-145 1265193985) K (test code = 3.9 mmol/L 3.5-5.0 3832037656) CL (test code = 104 mmol/L 98-108 4418397742) CO2 TOTAL (test code = 26 mmol/L 23-31 7764041274) AGAP (test code = 2-16 7620710369) BUN (test code = 24 mg/dL 7-23 H 1450407849) GLUCOSE (test code = 100 mg/dL 70-110 3661381501) CREATININE (test code = 0.80 mg/dL 0.50-1.04 7094403649) TOTAL BILI (test code = 0.4 mg/dL 0.1-1.6 5452702337) CALCIUM (test code = 9.6 mg/dL 8.6-10.6 8244603676) T PROTEIN (test code = 7.4 g/dL 6.3-8.2 0007181577) ALBUMIN (test code = 4.4 g/dL 3.5-5.0 6966494723) ALK PHOS (test code = 76 U/L 34-122 8837730561) ALTv (test code = 16 U/L 5-35 1742-6) AST(SGOT) (test code = 24 U/L 13-40 9596533041) eGFR (test code = mL/min/1.73m2 9035752299) LIAN (test code = LIAN) Association of [...] tests). Lab Interpretation Abnormal (test code = 79083-5) [facility]2021-[facility]28 02:59:06 Test Item Value Reference Range Interpretation Comments MAGNESIUM (test code = 6149781947) 2.3 mg/dL 1.7-2.4 Lab Interpretation (test code = Normal 34532-4) [facility] WITH [id number] 02:52:46 Test Item Value Reference Range Interpretation Comments WBC (test code = See_Comment [Automated 1790-2) message] The sy stem which generated this [...] RDW-SD (test code = 47.8 fL 39.0-49.9 25537-2) RDW-CV (test code = 14.8 % 12.0-15.5 788-0) PLT (test code = See_Comment H [Automated 777-3) message] The sy stem which generated this result transmitted reference range : 166 - 358 10*3/ ?L. The reference r radha was not used to interpret this result as normal/abnormal . MPV (test code = 10.5 fL 9.5-12.9 28185-9) NRBC/100 WBC (test See_Comment [Automat ed code = 2795402981) message] The system which generated this result transmitted reference range : 0.0 - 10.0 /100 WBCs. The refer ence range was not u sed to interpret th is result as normal/abnormal . NRBC x10^3 (test code <0.01 See_Comment [Auto mated = 3621000241) message] The s ystem which generated this result transmitted reference range : 10*3/?L. The reference range was not used to interpret this result as normal/abnormal . GRAN MAT (NEUT) % 48.8 % (test code = 770-8) IMM GRAN % (test code 0.50 % = 2647339431) LYMPH % (test code = 40.7 % 736-9) MONO % (test code = 9.6 % 5905-5) EOS % (test code = 0.0 % 713-8) BASO % (test code = 0.4 % 706-2) GRAN MAT x10^3(ANC) 3.69 10*3/uL 1.88-7.09 (test code = 5287726306) IMM GRAN x10^3 (test 0.04 10*3/uL 0.00-0.06 code = 7285560958) LYMPH x10^3 (test code 3.08 10*3/uL 1.32-3.29 = 731-0) MONO x10^3 (test code 0.73 10*3/uL 0.33-0.92 = 742-7) EOS x10^3 (test code = <0.03 0.03-0.39 L 711-2) BASO x10^3 (test code 0.03 10*3/uL 0.01-0.07 = 704-7) Lab Interpretation Abnormal (test code = 87270-4) [facility] A[facility] PELVIS [id number] 20:40:00 [facility] 1960 Sex: F Name: GIO ESTRELLA [facility] [place] : 1960 Age/S: 60 / F [address] [place] [address] Unit #: [id number] Loc: [place] [address] Phys: Shaun Amin MD Acct: [id number] Dis Date: Status: REG ER PHONE #: [phone] Exam Date: 01/28/20212018 FAX #: [phone] Reason: n/v, constipation. hx molly and EMANUEL, eval sbo EXAMS: CPT CODE: [id number] CT ABD PELVIS W/CONT 19803 CT abdomen and pelvis with contrast dated [...] 1 Signed Report (CONTINUED) Name: GIO ESTRELLA [facility] : 1960 Age/S: 60 / F [address] [place] [address] Unit #: [id number] Loc: [place] [address] Phys: Shaun Amin MD Acct: [id number] Dis Date: Status: REG ER PHONE #: [phone] Exam Date: 01/28/20212018 FAX #: [phone] Reason: n/v, constipation. hx molly and EMANUEL, eval sbo EXAMS: CPT CODE: [id number] CT ABD PELVIS W/CONT 43834 < Continued> identified and may be surgically [...] RT(R)(CT) CTDI: DLP: Trnscb Date/Time: 01/28/2021 (2039) KevinM Orig Print D/T: S: 01/28/2021 (2043) PAGE 2 Signed ReportCOMPREHENSIVE METABOLIC [id number] 20:11:00 Test Item Value Reference Range Interpretation [...] 20-125 N TOTAL (test code = ALKP) [id number] 20:11:00 Test Item Value Reference Range Interpretation Comments LIPASE (test code = LIP) 44 U/L 13-57 N [id number] 20:11:00 Test Item Value Reference Range Interpretation [...] may richa y by method. COMPREHENSIVE METABOLIC [id number] 20:07:00 Test Item Value Reference Range Interpretation [...] IUnit/L 20-125 TOTAL (test code = ALKP) [id number] 20:07:00 Test Item Value Reference Range Interpretation Comments LIPASE (test code = LIP) U/L 13-57 [id number] 20:07:00 Test Item Value Reference Range Interpretation [...] by method. UA RFLX MICR CULT IF [id number] 20:00:00 Test Item Value Reference Range Interpretation [...] culture: Dysuria/FrequencySpecimen Description: CLEAN CATCH CBC W/AUTO [id number] 19:55:00 Test Item Value Reference Range Interpretation [...] (test code NO = MDIFF) CBC W/AUTO [id number] 19:52:00 Test Item Value Reference Range Interpretation [...]
[2021-12-19] MEDS ORDERED: FLUORESCEIN SODIUM 1 MG/WRAP ONE (11:49)
[2021-12-19] MEDS ORDERED: TETRACAINE HCL 0.5% 4ML OPTH ONE (11:49)
[2021-12-19 13:02] LABS: Absolute Lymphocytes (CBC) 2.7 K/uL (0.7-4.9); Hematocrit 40.9 % (36.0-45.0); MPV 8.9 fL (7.6-11.3); RBC Red Blood Cell Count 4.72 M/uL (3.86-4.86)
[2021-12-19 13:16] LABS: Albumin 4.3 g/dL (3.4-5.0); Bilirubin Total 0.5 mg/dL (0.2-1.0); Potassium 3.7 mmol/L (3.5-5.1); Protein, Total 8.4 g/dL (6.4-8.2)
[2021-12-19 14:33] LABS: Urine Blood Negative (Negative); Urine Glucose Negative (Negative); Urine Protein Negative (Negative)
[2021-12-19 14:46] LABS: Urine Bacteria <20 /HPF (<20); Urine RBC <5 /HPF (NONE SEEN)
--- NOTE | 2021-12-19 15:02 | ER ---
Nurse's Notes [facility] Name: Debbie Albright Age: 61 yrs Sex: Female : 1960 Arrival Date: 12/19/2021 Time: 11:04 Bed 23 Private MD: Rafael Magana Diagnosis: Nausea;Ocular pain, right eye;Abrasion, right knee Presentation: 12/19 12:34 Chief complaint: Patient states: she fell 2 days ago and is having right knee pain. ap3 Patient also reports right eye pain, nausea, vomiting and upper abdominal pain. Coronavirus screen: At this time, the client does not indicate any symptoms associated with coronavirus-19. Ebola Screen: No symptoms or risks identified at this time. Initial Sepsis Screen: Does the patient meet any 2 criteria? No. Patient's initial sepsis screen is negative. Does the patient have a suspected source of infection? No. Patient's initial sepsis screen is negative. Risk Assessment: Do you want to hurt yourself or someone else? Patient reports no desire to harm self or others. Onset of symptoms was December 17, 2021. 12:34 Method Of Arrival: Ambulatory ap3 12:34 Acuity: GRADY 3 ap3 Triage Assessment: 12:36 General: Appears in no apparent distress. Behavior is calm, cooperative. Pain: ap3 Complains of pain in right knee, right eye, upper abdomen. Neuro: Level of Consciousness is awake, alert, obeys commands, Oriented to person, place, time, situation. Cardiovascular: Patient's skin is warm and dry. Respiratory: Airway is patent Respiratory effort is even, unlabored. Historical: - Allergies: 12:35 Tramadol HCl; ap3 - PMHx: 12:35 depressive disorder; Hypertensive disorder; sarcoydosis; Gastroesophageal reflux ap3 disease; Anxiety; - PSHx: 12:35 Tonsillectomy; Cholecystectomy; ap3 - Immunization history:: Client reports receiving the 2nd dose of the Covid vaccine. - Social history:: Smoking status: Patient denies any tobacco usage or history of. Screenin:36 Abuse screen: Denies threats or abuse. Nutritional screening: No deficits noted. ap3 Tuberculosis screening: No symptoms or risk factors identified. 14:32 Fall Risk Fall in past 12 months (25 points). No secondary diagnosis (0 pts). ld1 Ambulatory Aid- None/Bed Rest/Nurse Assist (0 pts). Gait- Normal/Bed Rest/Wheelchair (0 pts) Mental Status- Oriented to own ability (0 pts). Assessment: 14:32 General: Appears in no apparent distress. comfortable, Behavior is calm, cooperative, ld1 appropriate for age. Pain: Complains of pain in right eye, abdomen and right knee Pain does not radiate. Pain currently is 6 out of 10 on a pain scale. Neuro: Level of Consciousness is awake, alert, obeys commands, Oriented to person, place, time, situation. Cardiovascular: Capillary refill < 3 seconds Patient's skin is warm and dry. Respiratory: Airway is patent Respiratory effort is even, unlabored, Respiratory pattern is regular, symmetrical. GI: Abdomen is round non-distended, Reports upper abdominal pain, nausea, vomiting. : No signs and/or symptoms were reported regarding the genitourinary system. EENT: No signs and/or symptoms were reported regarding the EENT system. Derm: No signs and/or symptoms reported regarding the dermatologic system. Musculoskeletal: No signs and/or symptoms reported regarding the musculoskeletal system. Vital Signs: 12:34 Weight 74.84 kg; Height 5 ft. 0 in. (152.40 cm); ap3 13:29 BP 125 / 88; Pulse 76; Resp 16; Temp 99.1; Pulse Ox 99% on R/A; jw7 14:32 BP 129 / 86; Pulse 74; Resp 18; Pulse Ox 99% on R/A; Pain 4/10; ld1 12:34 Body Mass Index 32.22 (74.84 kg, 152.40 cm) ap3 ED Course: 11:04 Patient arrived in ED. am2 11:05 Rafael Magana MD is Private Physician. am2 11:29 Luis E Ji DO is Attending Physician. ms3 12:35 Triage completed. ap3 12:36 Arm band placed on right wrist. ap3 12:48 Inserted saline lock: 20 gauge in right antecubital area, using aseptic technique. jw7 Blood collected. 12:48 Initial lab(s) drawn, by md, sent to lab. jw7 12:49 CBC with Diff Sent. jw7 12:49 CMP Sent. jw7 12:49 Lipase Sent. jw7 14:26 Dibbern, Estefanía, RN is Primary Nurse. ld1 14:32 Patient has correct armband on for positive identification. Placed in gown. Bed in low ld1 position. Call light in reach. Side rails up X2. grinder and plater on. Pulse ox on. NIBP on. Door closed. Noise minimized. Warm blanket given. 14:32 Urine Microscopic Only Sent. ld1 14:32 No provider procedures requiring assistance completed. ld1 15:01 Rafael Magana MD is Referral Physician. ms3 15:20 IV discontinued, intact, bleeding controlled, No redness/swelling at site. ld1 Administered Medications: 11:47 Drug: Tetracaine Drops 0.5 % 1 drops {Note: administered by Dr. Ji.} Route: ss Ophthalmic; Site: right eye; Medication: 14:32 VIS not applicable for this client. ld1 Outcome: 15:02 Discharge ordered by . ms3 15:20 Discharged to home ambulatory. ld1 15:20 Condition: stable 15:20 Discharge instructions given to patient, Instructed on discharge instructions, follow up and referral plans. medication usage, Demonstrated understanding of instructions, follow-up care, medications, Prescriptions given X 1. 15:20 Patient left the ED. ld1 Signatures: Samia Perez, RN RN ss Rosmery Coates Amanda, RN RN ap3 Luis E Ji DO DO ms3 Estefanía Rodríguez, RN RN ld1 Dionna Llanos jw7
--- NOTE | 2021-12-19 15:02 | EDPHYS ---
Physician Documentation [facility] Name: Debbie Albright Age: 61 yrs Sex: Female : 1960 Arrival Date: 12/19/2021 Time: 11:04 Bed 23 Private MD: Rafael Magana ED Physician Luis E Ji HPI: 12/19 13:14 This 61 yrs old Female presents to ER via Ambulatory with complaints of Eye Problem, ms3 Fall Injury, Knee Pain, Vomiting, chills, Constipation. 13:14 The patient is experiencing Feeling of corneal abrasion, The patient sustained an ms3 abrasion, to the right eye, caused by an unknown mechanism. Onset: The symptoms/episode began/occurred this morning. Duration: the symptoms on waking up. Aggravated by nothing. Alleviated by nothing. 61-year-old female with past medical history of microscopic colitis, sarcoidosis, hypertension, GERD, esophageal dysmotility presents for sensation of corneal abrasion to her right eye. Patient also notes she fell on Friday without loss of consciousness. Patient endorses nausea, chills, constipation. Patient denies vomiting. Patient states she is having 7/10 generalized body discomfort.. Historical: - Allergies: 12:35 Tramadol HCl; ap3 - PMHx: 12:35 depressive disorder; Hypertensive disorder; sarcoydosis; Gastroesophageal reflux ap3 disease; Anxiety; - PSHx: 12:35 Tonsillectomy; Cholecystectomy; ap3 - Immunization history:: Client reports receiving the 2nd dose of the Covid vaccine. - Social history:: Smoking status: Patient denies any tobacco usage or history of. ROS: 13:14 Constitutional: Negative for fever, and chills. Cardiovascular: Negative for chest ms3 pain, and palpitations. Respiratory: Negative for shortness of breath, cough, wheezing, and pleuritic chest pain, Abdomen/GI: Negative for abdominal pain, nausea, vomiting, diarrhea, and constipation, Back: Negative for injury and pain, MS/Extremity: Negative for injury and deformity. 13:14 Eyes: Positive for pain. 13:14 Abdomen/GI: Positive for nausea. 13:14 Abdomen/GI: Positive for constipation. 13:14 All other systems are negative. Exam: 13:14 Constitutional: This is a well developed, well nourished patient who is awake, alert, ms3 and in no acute distress. Head/Face: Normocephalic, atraumatic. ENT: Nares patent. No nasal discharge, no septal abnormalities noted. Tympanic membranes are normal and external auditory canals are clear. Oropharynx with no redness, swelling, or masses, exudates, or evidence of obstruction, uvula midline. Mucous membranes moist. Neck: Trachea midline, no cervical lymphadenopathy. Supple, full range of motion without nuchal rigidity, or vertebral point tenderness. No Meningismus. Chest/axilla: Normal chest wall appearance and motion. Nontender with no deformity. Cardiovascular: Regular rate and rhythm with a normal S1 and S2. No gallops, murmurs, or rubs. Normal PMI, no JVD. No pulse deficits. Respiratory: Lungs have equal breath sounds bilaterally, clear to auscultation and percussion. No rales, rhonchi or wheezes noted. No increased work of breathing, no retractions or nasal flaring. Abdomen/GI: Soft, non-tender, with normal bowel sounds. No distension or tympany. No guarding or rebound. No evidence of tenderness throughout. Skin: Warm, dry with normal turgor. Normal color with no rashes, no lesions, and no evidence of cellulitis. Psych: Awake, alert, with orientation to person, place and time. Behavior, mood, and affect are within normal limits. 13:14 Eyes: Periorbital structures: appear normal, Pupils: equal, round, and reactive to light and accomodation, Extraocular movements: no acute changes, Conjunctiva: normal, Fluroscene exam normal. Vital Signs: 12:34 Weight 74.84 kg; Height 5 ft. 0 in. (152.40 cm); ap3 13:29 BP 125 / 88; Pulse 76; Resp 16; Temp 99.1; Pulse Ox 99% on R/A; jw7 14:32 BP 129 / 86; Pulse 74; Resp 18; Pulse Ox 99% on R/A; Pain 4/10; ld1 12:34 Body Mass Index 32.22 (74.84 kg, 152.40 cm) ap3 MDM: 13:14 Differential diagnosis: Corneal abrasion of Constipation vs Pancreatitis vs Electrolyte ms3 abnormality vs anemia. 14:36 Patient medically screened. ms3 15:03 Data reviewed: vital signs, nurses notes, lab test result(s). Data interpreted: Pulse ms3 oximetry: on room air is 99 %. Interpretation: normal. Counseling: I had a detailed discussion with the patient and/or guardian regarding: the historical points, exam findings, and any diagnostic results supporting the discharge/admit diagnosis, lab results, the need for outpatient follow up, to return to the emergency department if symptoms worsen or persist or if there are any questions or concerns that arise at home. ED course: Discussed labs, physical exam findings with patient. Patient to follow-up with primary care physician in 2-3 days. Patient understands and agrees with plan. All questions were answered. Return precautions discussed include worsening symptoms, or any other concerns. On reevaluation patient is alert and oriented x4, in no apparent distress, nontoxic-appearing, speaking full sentences, ambulatory in emergency department. . 12/19 11:49 Order name: CBC with Diff; Complete Time: 14:36 ms3 12/19 11:49 Order name: CMP; Complete Time: 14:36 ms3 12/19 11:49 Order name: Lipase; Complete Time: 14:36 ms3 12/19 11:49 Order name: Urine Microscopic Only; Complete Time: 15:01 ms3 12/19 14:33 Order name: Urine Dipstick-Ancillary; Complete Time: 14:36 EDMS 12/19 11:49 Order name: IV Saline Lock; Complete Time: 12:48 ms3 12/19 11:49 Order name: Labs collected and sent; Complete Time: 12:48 ms3 12/19 11:49 Order name: Urine Dipstick-Ancillary (obtain specimen); Complete Time: 14:32 ms3 Administered Medications: 11:47 Drug: Tetracaine Drops 0.5 % 1 drops {Note: administered by Dr. Ji.} Route: ss Ophthalmic; Site: right eye; Disposition Summary: 12/19/21 15:02 Discharge Ordered Location: Home ms3 Condition: Stable ms3 Diagnosis - Nausea ms3 - Ocular pain, right eye ms3 - Abrasion, right knee ms3 Followup: ms3 - With: Rafael Magana MD - When: 2 - 3 days - Reason: Recheck today's complaints Discharge Instructions: - Discharge Summary Sheet ms3 - Nausea, Adult ms3 Forms: - Medication Reconciliation Form ms3 - Thank You Letter ms3 - Antibiotic Education ms3 - Prescription Opioid Use ms3 Prescriptions: - promethazine 25 mg Rectal suppository - insert 1 suppository by RECTAL route every 6 hours As needed; 20 suppository; cp Refills: 0, Product Selection Permitted Signatures: Dispatcher [employer] Samia Goodman RN RN ss Rosmery Lozano RN RN ap3 Luis E Ji, DO ms3
[2021-12-19 15:38] VITALS: TEMP 99.1; O2SAT 99
[2021-12-19 15:39] VITALS: BP 129/86
== END 2021-12-19 15:20 | disposition home or self-care (01) ==
LOC: ER 11:03
DX: H57.11 Ocular pain, right eye (principal); R11.0 Nausea; S80.211A Abrasion, right knee, initial encounter; W19.XXXA Unspecified fall, initial encounter; I10 Essential (primary) hypertension; Z88.5 Allergy status to narcotic agent
CPT/HCPCS: 36415; 80053; 81003; 81015; 83690; 85025; 99284

== ENCOUNTER 2022-01-23 05:59 | Emergency (ER) | payer SELFPAY ==
--- OUTSIDE RECORDS SUMMARY | 2022-01-23 06:02 | XMS REPORT | Continuity of Care Document ---
:1960 Author Organization [facility] t Address [address] [place] [address] Care Team Providers Name Role Phone TRIP Primary Care Physician Unavailable Shavonne Hussein NP Attending Clinician Shavonne HUSSEIN Attending Clinician Unavailable Nancie Amin Attending Clinician Unavailable Physician, Primary or Family Admitting Clinician Unavailabl e Payers Payer Name Policy Type Policy Number Effective Date Expiration Date S mannie HIM AMBETTER FROM [id number] 2021 [facility] 00:00:00 Problems Condition Condition Condition Status Onset Resolution Last Treating Co mments Source Name Details Category Date Date Treatment Clinician Date No known No known Disease Unive rs active active ity of problems problems [place] [facility] Allergies, Adverse Reactions, Alerts Allergy [...] Allergie 6-27 Clear s 00:00: [place] 00 [facility] No Known DA Active U [facility] Allergie 6-27 Clear s 00:00: [place] 00 [facility] Hay Propensi Active Unknown - 2011-08 Per [...] Alcohol Frequency [place] [facility] History SDOH University o f Alcohol Std [place] [facility] Drinks Branch History SDCO University o f Alcohol Binge [place] [facility] Exposure to Not sure University SARS-CoV-2 [place] [facility] (event) Branch Alcohol intake 2012-05-09 2012-05-09 Current University of 00:00:00 00:00:00 non-drinker of [facility] alcohol Branch (finding) Alcohol Comment 2012-05-09 2012-05-09 used to drink as Uni versity of 00:00:00 00:00:00 a teenager [facility] Sex Ass[birth year] At [birth year] Universit y of 00:00:00 00:00:00 [facility] Smoking Status Start Date Stop Date Source Never smoker [facility] Branch Medications Ordered Filled Start Stop Current Ordering Indication Dosage Frequency Signature Comments Components Source Medication Medication Date Date Medication? Clinician (SIG) Name Name ALPRAZolam 2011-08 Yes 1mg Take 1 mg Un devin (XANAX) 1 0-06 by mouth 3 ity of mg tablet 12:50: (three) [place] 15 times Medical daily. Branch gabapentin 2011-08 [...] mouth ity of mg tablet 12:50: daily. [place] [address] Medical Branch omeprazole 2011-08 Yes 40mg Take 40 mg U nivers (PRILOSEC) 0-06 by mouth ity o f 40 mg 12:50: daily. [place] [address] Medical Branch HYDROcodone 2011-08 Yes 1{tbl} Take 1 Tab Univers -acetaminop 0-06 by mouth 2 it y of hen (NORCO) 12:50: (two) [place] 5-325 mg 15 times Medical tablet daily. Branch traMADOL 2011-08 Yes 50mg Take 50 mg Uni vers (ULTRAM) 50 0-06 by mouth ity of mg tablet 12:50: every 6 [place] 15 (six) Medical hours as Branch needed. psyllium 2011-08 Yes 6g Take 6 g Unive rs (METAMUCIL) 0-06 by mouth ity of 0.52 gram 12:50: daily. [place] capsule 15 [facility] traZODONE 2011-08 Yes 150mg Take 150 Uni vers (DESYREL) 0-06 mg by ity of 100 mg 12:50: mouth at [place] tablet 15 bedtime. [facility] Vital Signs Vital Name Observation Time Observation Value Comments Source Systolic blood 2021-05-01 03:00:00 123 mm[facility]Hg[facility] Diastolic blood 2021-05-01 03:00:00 78 mm[Hg] [facility] Heart rate 2021-05-01 03:00:00 78 /min [facility] Respiratory rate 2021-05-01 03:00:00 26 /min [facility] Oxygen saturation in 2021-05-01 03:00:00 98 /min [facility] Arterial blood by [facility] Pulse oximetry [place] Body temperature 2021-05-01 01:44:00 37.56 [facility] Body height 2021-05-01 01:44:00 177.8 cm [facility] Body weight 2021-05-01 01:44:00 83.915 kg [facility] BMI 2021-05-01 01:44:00 26.54 kg/m2 [facility] Procedures Procedure Date / Time Performed Performing Clinician Sourc e MAGNESIUM 2021-05-01 02:33:00 Hoa Hussein [facility] TROPONIN I 2021-05-01 02:33:00 Hoa Hussein [facility] COMP. METABOLIC PANEL 2021-05-01 02:33:00 [facility]ly [facility] ([id number]) [facility] CBC WITH DIFF 2021-05-01 02:33:00 Hoa Hussein [facility] URINALYSIS 2021-05-01 02:33:00 Hoa Hussein [facility] N-TERMINAL PRO-BNP 2021-05-01 02:33:00 Hoa Hussein [facility] NOTICE OF PRIVACY 2021-05-01 01:37:44 Doctor Unassigned, No Univ [facility] PRACTICES Name Medical Branch CONSENT/REFUSAL FOR 2021-05-01 01:37:01 [facility] Branch TREATMENT Encounters Start End Encounter Admission Attending Care Care Encounter Source Date/Time Date/Time Type Type Clinicians Facility Department ID 2021-04-30 2021-04-30 Emergency [facility] [id number] Univers 20:49:00 23:18:00 Hoa Marvin [place] [id number] ititz [facility] [id number] [facility] [id number] [facility] 084 Branch 2021-04-30 2021-04-30 Emergency X [facility] ERT [id number] Univers 20:49:00 23:18:00 HOA valdez [facility] 2021-01-28 2021-01-28 Emergency EM Nwoye, HCACL SANJUANITA [id number] [facility] 18:49:00 21:59:[id number] [facility] Results Test Description Test Time Test Comments Results Result Comments Source SJOGREN'S SS-B ANTIBODY 2022-01-08 06:45:28 Test Item Value Reference Range Interpretation Comme nts SJOGREN'S SS-B ANTIBODY (test code = 54639) <0.2 AI <1.0 SJOGREN'S SS-A [id number] 06:45:28 Test Item Value Reference Range Interpretation Comments SJOGREN'S SS-A <0.2 AI <1.0 UNLESS OTHERWISE ANTIBODY (test code = INDICA RIMA, ALL TESTING 93305) PERFORMED [facility] NICAL PATHOLOGY LABOR [facility] [address] [place] [address] 4 LABORATORY DIRE CTOR: LUIS DOSS M.D. CHARITOIA NUMBER [id number] [place] [id number] TROPONIN [id number] 03:09:09 Test Item Value Reference Interpretation Comments Range TROPONIN I (test 0.001 ng/mL See_Comment [Automated code = 2579265470) message] The system which generated this result transmitted reference range : <=0.034. The reference range was not used to interpret this result as normal/abnormal . LIAN (test code = Reference (Normal) LIAN) Range (defined by the 99th percentile reference [...] biotin. Lab Interpretation Normal (test code = 80110-9) [facility] [id number] 03:06:10 Test Item Value Reference Range Interpretation Comments NT-proBNP (test code 296 pg/mL See_Comment H [Autom ated = 0300755643) message] The system which generated this result transmitted reference range : <=125. The reference range was not used to interpret this result as normal/abnormal . LIAN (test code = LIAN) Biotin has been reported to cause a negative bias, interpret results relative to patient's use of biotin. Lab Interpretation Abnormal (test code = 04817-2) [facility] (41644)2021-05-01 02:59:06 Test Item Value Reference Range Interpretation Comments NA (test code = 138 mmol/L 135-145 9759099145) K (test code = 3.9 mmol/L 3.5-5.0 7596629006) CL (test code = 104 mmol/L 98-108 1972663034) CO2 TOTAL (test code = 26 mmol/L 23-31 1022079337) AGAP (test code = 2-16 6066582928) BUN (test code = 24 mg/dL 7-23 H 8658866180) GLUCOSE (test code = 100 mg/dL 70-110 9436070331) CREATININE (test code = 0.80 mg/dL 0.50-1.04 9163653707) TOTAL BILI (test code = 0.4 mg/dL 0.1-1.9 3687700547) CALCIUM (test code = 9.6 mg/dL 8.6-10.6 7942827384) T PROTEIN (test code = 7.4 g/dL 6.3-8.2 8501319611) ALBUMIN (test code = 4.4 g/dL 3.5-5.0 9728920718) ALK PHOS (test code = 76 U/L 34-122 8405210944) ALTv (test code = 16 U/L 5-35 2-6) AST(SGOT) (test code = 24 U/L 13-40 9937108832) eGFR (test code = mL/min/1.73m2 0180598878) LIAN (test code = LIAN) Association of [...] tests). Lab Interpretation Abnormal (test code = 02700-1) [facility] 02:59:06 Test Item Value Reference Range Interpretation Comments MAGNESIUM (test code = 2177455532) 2.3 mg/dL 1.7-2.4 Lab Interpretation (test code = Normal 31531-9) [facility] WITH [id number] 02:52:46 Test Item Value Reference Range Interpretation Comments WBC (test code = See_Comment [Automated 6690-2) message] The sy stem which generated this [...] RDW-SD (test code = 47.8 fL 39.0-49.9 62218-2) RDW-CV (test code = 14.8 % 12.0-15.5 788-0) PLT (test code = See_Comment H [Automated 777-3) message] The sy stem which generated this result transmitted reference range : 166 - 358 10*3/ ?L. The reference r radha was not used to interpret this result as normal/abnormal . MPV (test code = 10.5 fL 9.5-12.9 12403-8) NRBC/100 WBC (test See_Comment [Automat ed code = 4989582957) message] The system which generated this result transmitted reference range : 0.0 - 10.0 /100 WBCs. The refer ence range was not u sed to interpret th is result as normal/abnormal . NRBC x10^3 (test code <0.01 See_Comment [Auto mated = 8746991313) message] The s ystem which generated this result transmitted reference range : 10*3/?L. The reference range was not used to interpret this result as normal/abnormal . GRAN MAT (NEUT) % 48.8 % (test code = 770-8) IMM GRAN % (test code 0.50 % = 7373048587) LYMPH % (test code = 40.7 % 736-9) MONO % (test code = 9.6 % 5905-5) EOS % (test code = 0.0 % 713-8) BASO % (test code = 0.4 % 706-2) GRAN MAT x10^3(ANC) 3.69 10*3/uL 1.88-7.09 (test code = 1502574715) IMM GRAN x10^3 (test 0.04 10*3/uL 0.00-0.06 code = 0958662507) LYMPH x10^3 (test code 3.08 10*3/uL 1.32-3.29 = 731-0) MONO x10^3 (test code 0.73 10*3/uL 0.33-0.92 = 742-7) EOS x10^3 (test code = <0.03 0.03-0.39 L 711-2) BASO x10^3 (test code 0.03 10*3/uL 0.01-0.07 = 704-7) Lab Interpretation Abnormal (test code = 01057-8) [facility] A[facility]EL[facility] [id number] 20:40:00 [facility] : 1960 Sex: F Name: GIO ESTRELLA [facility] [place] : 1960 Age/S: 60 / F [address] [place] [address] Unit #: [id number] Loc: [place] [address] Phys: Shaun Amin MD Acct: [id number] Dis Date: Status: REG ER PHONE #: [phone] Exam Date: 01/28/20212018 FAX #: [phone] Reason: n/v, constipation. hx molly and EMANUEL, eval sbo EXAMS: CPT CODE: [id number] CT ABD PELVIS W/CONT 06825 CT abdomen and pelvis with contrast dated [...] 1 Signed Report (CONTINUED) Name: [facility] : 1960 Age/S: 60 / F [address] [place] [address] Blvd Unit #: [id number] Loc: [place] [address] Phys: Shaun Amin MD Acct: [id number] Dis Date: Status: REG ER PHONE #: [phone] Exam Date: 01/28/20212018 FAX #: [phone] Reason: n/v, constipation. hx molly and EMANUEL, eval sbo EXAMS: CPT CODE: [id number] CT ABD PELVIS W/CONT 87574 < Continued> identified and may be surgically [...] 01/28/2021 (2043) PAGE 2 Signed ReportCOMPREHENSIVE METABOLIC [id number] 20:11:00 Test Item Value Reference Range Interpretation [...] 20-125 N TOTAL (test code = ALKP) [id number] 20:11:00 Test Item Value Reference Range Interpretation Comments LIPASE (test code = LIP) 44 U/L 13-57 N [id number] 20:11:00 Test Item Value Reference Range Interpretation [...] may richa y by method. COMPREHENSIVE METABOLIC [id number] 20:07:00 Test Item Value Reference Range Interpretation [...] IUnit/L 20-125 TOTAL (test code = ALKP) [id number] 20:07:00 Test Item Value Reference Range Interpretation Comments LIPASE (test code = LIP) U/L 13-57 [id number] 20:07:00 Test Item Value Reference Range Interpretation [...] by method. UA RFLX MICR CULT IF [id number] 20:00:00 Test Item Value Reference Range Interpretation [...] culture: Dysuria/FrequencySpecimen Description: CLEAN CATCH CBC W/AUTO [id number] 19:55:00 Test Item Value Reference Range Interpretation [...] (test code NO = MDIFF) CBC W/AUTO [id number] 19:52:00 Test Item Value Reference Range Interpretation [...]
[2022-01-23 07:05] LABS: Absolute Lymphocytes (CBC) 2.4 K/uL (0.7-4.9); Hematocrit 40.1 % (36.0-45.0); Lymphocytes % 34.9 % (15.3-44.8); MPV 8.6 fL (7.6-11.3); RBC Red Blood Cell Count 4.68 M/uL (3.86-4.86)
[2022-01-23 07:10] LABS: Protime INR 0.96
[2022-01-23 07:28] LABS: Bilirubin Total 0.3 mg/dL (0.2-1.0); Potassium 4.1 mmol/L (3.5-5.1); Protein, Total 8.2 g/dL (6.4-8.2)
[2022-01-23] MEDS ORDERED: MORPHINE 2 MG/ML SYR ONE (08:47)
--- NOTE | 2022-01-23 09:58 | ER ---
Nurse's Notes [facility] Name: Debbie Albright Age: 61 yrs Sex: Female : 1960 Arrival Date: 01/23/2022 Time: 06:04 Bed 20 Private MD: Diagnosis: Headache Presentation: 01/23 06:09 Chief complaint: EMS states: Neck and back pain, nausea and low grade fever 99.1. ke1 Repeat fall since August per patient. Coronavirus screen: Vaccine status: Patient reports receiving the 2nd dose of the covid vaccine. Ebola Screen: No symptoms or risks identified at this time. Initial Sepsis Screen: Does the patient meet any 2 criteria? No. Patient's initial sepsis screen is negative. Does the patient have a suspected source of infection? No. Patient's initial sepsis screen is negative. Risk Assessment: Do you want to hurt yourself or someone else? Patient reports no desire to harm self or others. Onset of symptoms was December 23, 2021. 06:09 Method Of Arrival: EMS: [facility] ke1 06:09 Acuity: GRADY 3 ke1 Triage Assessment: 06:12 Headache History: The patient has had previous headaches and this one is more severe ke1 than previous episodes. General: Appears in no apparent distress. Behavior is appropriate for age. Pain: Complains of pain in neck Pain radiates to upper and lower back Pain currently is 7 out of 10 on a pain scale. at worst was 7 out of 10 on a pain scale. level that patient reports is acceptable is 3 out of 10 on a pain scale. Quality of pain is described as sharp, Pain began Also complains of nausea. Neuro: Level of Consciousness is awake, alert, Oriented to person, place, time, situation, Washer Assembler are equal bilaterally Gait is steady, Speech is normal, Facial symmetry appears normal, Pupils are PERRLA, Intact. Historical: - Allergies: 06:11 Tramadol HCl; ke1 - PMHx: 06:11 Anxiety; depressive disorder; Gastroesophageal reflux disease; Hypertensive disorder; ke1 sarcoydosis; - PSHx: 06:11 Cholecystectomy; Tonsillectomy; ke1 - Immunization history:: Client reports receiving the 2nd dose of the Covid vaccine. - Social history:: Smoking status: Patient denies any tobacco usage or history of. Screenin:19 Abuse screen: Denies threats or abuse. Nutritional screening: No deficits noted. ke1 Tuberculosis screening: No symptoms or risk factors identified. Fall Risk Fall in past 12 months (25 points). No secondary diagnosis (0 pts). IV access (20 points). Ambulatory Aid- None/Bed Rest/Nurse Assist (0 pts). Gait- Normal/Bed Rest/Wheelchair (0 pts) Mental Status- Oriented to own ability (0 pts). Total Mercado Fall Scale indicates High Risk Score (45 or more points). Fall prevention measures have been instituted. Side Rails Up X 2 Placed Close to Nursing Station Frequent Obs/Assessments Occuring As available patient and family educated on Fall Prevention Program and Strategies. Assessment: 07:16 General: Appears in no apparent distress. Behavior is calm, cooperative. Pain: jh6 Complains of pain in base of the skull Pain radiates to thoracic area Pain currently is 5 out of 10 on a pain scale. Quality of pain is described as aching, Pain began reporting a month ago. 08:06 General: pt requesting pain meds that is not Tylenol or an NSAID. reports that she has jh6 chronic back pain but does not take meds on a daily bases. . 09:45 Reassessment: Patient and/or family updated on plan of care and expected duration. Pain jh6 level reassessed. Patient is alert, oriented x 3, equal unlabored respirations, skin warm/dry/pink. Patient denies pain at this time. Patient states feeling better. Vital Signs: 06:09 BP 118 / 73; Pulse 64; Resp 17; Temp 99.1; Pulse Ox 100% ; Weight 72.57 kg; Height 5 ke1 ft. (152.40 cm); Pain 7/10; 08:07 BP 126 / 70; Pulse 62; Resp 17; Pulse Ox 100% ; jh6 09:45 BP 118 / 64; Pulse 64; Resp 17; Pulse Ox 100% ; Pain 2/10; jh6 06:09 Body Mass Index 31.25 (72.57 kg, 152.40 cm) ke1 ED Course: 06:04 Patient arrived in ED. bb 06:09 Nicol Simpson, MARLEN is Primary Nurse. ke1 06:11 Triage completed. ke1 06:15 Silvino Rene MD is Attending Physician. kdr 06:20 Arm band placed on right wrist. ke1 06:20 Bed in low position. Call light in reach. Side rails up X 1. ke1 07:13 COVID-19 SARS RT PCR (Document "Date of Onset" if Symptomatic) Sent. ke1 07:14 Flu Sent. ke1 07:16 Inserted saline lock: 22 gauge in left forearm, using aseptic technique. [facility] 07:25 Attending Physician role handed off by Silvino Rene MD rn 07:25 Cliff Seals MD is Attending Physician. rn 10:15 No provider procedures requiring assistance completed. 6 10:15 IV discontinued, intact, bleeding controlled, No redness/swelling at site. Pressure 6 dressing applied. Administered Medications: 08:45 Drug: morphine 2 mg Route: IVP; Infused Over: 4 mins; Site: left antecubital; [facility] 09:45 Follow up: Response: Pain is decreased [facility] Medication: 10:27 VIS not applicable for this client. [facility] Outcome: 09:57 Discharge ordered by MD. rn 10:27 Discharged to home ambulatory. [facility] 10:27 Condition: good 10:27 Discharge instructions given to patient, Instructed on discharge instructions, follow up and referral plans. 10:28 Patient left the ED. [facility] Signatures: Silvino Rene MD MD kdr Ballard, Brenda RN RN Cliff Seals MD MD rn Hastedt, Jennifer, RN RN [facility] Nicol Simpson RN RN ke1 Corrections: (The following items were deleted from the chart) 06:21 06:09 Chief complaint: EMS states: Neck and back pain, nausea and low grade fever 99.1 ke1 ke1
--- NOTE | 2022-01-23 09:58 | EDPHYS ---
Physician Documentation [facility] Name: Debbie Albright Age: 61 yrs Sex: Female : 1960 Arrival Date: 01/23/2022 Time: 06:04 Bed 20 Private MD: ED Physician Cliff Seals HPI: 01/23 06:55 This 61 yrs old Female presents to ER via EMS with complaints of Headache, Neck Pain, kdr >24Hrs Old, Back Pain. 06:55 Patient states that she has been feeling generally poor since August. She has had a kdr combination of mild nausea and low-grade fever off and on since then. She is also had periods of weakness resulting in falls in August as well. Today she has no focal illness but generally feels poorly. Edition she has had diffuse neck and back pain despite several falls, she has had no associated injuries. Onset: The symptoms/episode began/occurred gradually, Since August. Severity of symptoms: At their worst the symptoms were mild in the emergency department the symptoms are unchanged. The patient has not experienced similar symptoms in the past. The patient has not recently seen a physician. Historical: - Allergies: 06:11 Tramadol HCl; ke1 - PMHx: 06:11 Anxiety; depressive disorder; Gastroesophageal reflux disease; Hypertensive disorder; ke1 sarcoydosis; - PSHx: 06:11 Cholecystectomy; Tonsillectomy; ke1 - Immunization history:: Client reports receiving the 2nd dose of the Covid vaccine. - Social history:: Smoking status: Patient denies any tobacco usage or history of. ROS: 06:55 Constitutional: Negative for fever, chills, and weight loss, Eyes: Negative for injury, kdr pain, redness, and discharge, ENT: Negative for injury, pain, and discharge, Cardiovascular: Negative for chest pain, palpitations, and edema, Respiratory: Negative for shortness of breath, cough, wheezing, and pleuritic chest pain, Abdomen/GI: Negative for abdominal pain, nausea, vomiting, diarrhea, and constipation, : Negative for injury, bleeding, discharge, and swelling, MS/Extremity: Negative for injury and deformity, Skin: Negative for injury, rash, and discoloration, Psych: Negative for depression, anxiety, suicide ideation, homicidal ideation, and hallucinations, Allergy/Immunology: Negative for hives, rash, and allergies, Endocrine: Negative for neck swelling, polydipsia, polyuria, polyphagia, and marked weight changes, Hematologic/Lymphatic: Negative for swollen nodes, abnormal bleeding, and unusual bruising. 06:55 Neck: Positive for pain with movement, Negative for stiffness, swelling, swollen nodes, tenderness, bony tenderness. 06:55 Back: Positive for pain at rest, of the low back area. 06:55 Neuro: Positive for headache, weakness, Negative for dizziness, gait disturbance, hearing loss, loss of consciousness, numbness, seizure activity, speech changes, syncope, near syncope, tinnitus. Exam: 07:55 Constitutional: This is a well developed, well nourished patient who is awake, alert, rn and in no acute distress. Head/Face: Normocephalic, atraumatic. Eyes: Periorbital areas with no swelling, redness, or edema. ENT: No Stridor, MMM Neck: Trachea midline, no masses palpated, and no cervical lymphadenopathy. Supple, full range of motion without nuchal rigidity, or vertebral point tenderness. No Meningismus. Cardiovascular: Regular rate and rhythm. No pulse deficits. Respiratory: No increased work of breathing, no retractions or nasal flaring. Abdomen/GI: Soft, non-tender Skin: Warm, dry MS/ Extremity: Pulses equal, no cyanosis. Neuro: Awake and alert, GCS 15, oriented to person, place, time, and situation. Vital Signs: 06:09 BP 118 / 73; Pulse 64; Resp 17; Temp 99.1; Pulse Ox 100% ; Weight 72.57 kg; Height 5 ke1 ft. (152.40 cm); Pain 7/10; 08:07 BP 126 / 70; Pulse 62; Resp 17; Pulse Ox 100% ; jh6 09:45 BP 118 / 64; Pulse 64; Resp 17; Pulse Ox 100% ; Pain 2/10; jh6 06:09 Body Mass Index 31.25 (72.57 kg, 152.40 cm) ke1 MDM: 07:25 Patient medically screened. rn 09:55 Differential Diagnosis viral syndrome, depression, anxiety, stress reaction, muscle rn aches. Data reviewed: vital signs, nurses notes, lab test result(s), EKG, and as a result, I will discharge patient. Counseling: I had a detailed discussion with the patient and/or guardian regarding: the historical points, exam findings, and any diagnostic results supporting the discharge/admit diagnosis, lab results, radiology results, the need for outpatient follow up, to return to the emergency department if symptoms worsen or persist or if there are any questions or concerns that arise at home. Medical screen evaluation completed. EMTALA emergency medical condition absent. Special discussion: I discussed with the patient/guardian in detail that at this point there is no indication for admission to the hospital. It is understood, however, that if the symptoms persist or worsen the patient needs to return immediately for re-evaluation. Based on the history and exam findings, there is no indication for further emergent testing or inpatient evaluation. I discussed with the patient/guardian the need to see the primary care provider for further evaluation of the symptoms. 01/23 06:15 Order name: Blood Culture Adult (2) kdr 01/23 06:15 Order name: CBC with Diff; Complete Time: 07:20 kdr 01/23 06:15 Order name: CMP; Complete Time: 07:43 kdr 01/23 06:15 Order name: Lactate; Complete Time: 07:43 kdr 01/23 06:15 Order name: Protime (+inr); Complete Time: 07:20 kdr 01/23 06:15 Order name: Ptt, Activated; Complete Time: 07:20 kdr 01/23 06:15 Order name: Accucheck; Complete Time: 07:13 kdr 01/23 06:15 Order name: Cardiac monitoring; Complete Time: 08:19 kdr 01/23 06:15 Order name: EKG - Nurse/Tech; Complete Time: 08:19 kdr 01/23 06:15 Order name: IV Saline Lock - Large Bore; Complete Time: 07:15 kdr 01/23 06:55 Order name: COVID-19 SARS RT PCR (Document "Date of Onset" if Symptomatic); Complete mw2 Time: 09:55 01/23 06:59 Order name: Flu; Complete Time: 08:05 kdr 01/23 06:59 Order name: Glucose, Ancillary Testing; Complete Time: 07:20 EDMS 01/23 06:15 Order name: Labs collected and sent; Complete Time: 07:13 kdr 01/23 06:15 Order name: O2 Per Protocol; Complete Time: 07:16 kdr 01/23 06:15 Order name: O2 Sat Monitoring; Complete Time: 07:16 kdr Administered Medications: 08:45 Drug: morphine 2 mg Route: IVP; Infused Over: 4 mins; Site: left antecubital; 6 09:45 Follow up: Response: Pain is decreased [facility] Disposition Summary: 01/23/22 09:57 Discharge Ordered Location: Home rn Problem: new rn Symptoms: have improved rn Condition: Stable rn Diagnosis - Headache rn Followup: rn - With: Private Physician - When: As needed - Reason: Recheck today's complaints, Re-evaluation by your physician Discharge Instructions: - Discharge Summary Sheet rn - General Headache Without Cause rn - Fatigue rn Forms: - Medication Reconciliation Form rn - Thank You Letter rn - Antibiotic rn documentation - Prescription Opioid Use rn Signatures: Dispatcher [employer] EDMS Silvino Rene MD MD kdr Nieto, Roman, MD MD rn Hastedt, Jennifer, RN RN 6 Nicol Simpson, RN RN ke1
[2022-01-23 10:38] VITALS: TEMP 99.1; O2SAT 100
[2022-01-23 10:40] VITALS: BP 118/64
--- NOTE | 2022-01-26 17:39 | EKG ---
Test Date: 2022-01-23 Test Time: 07:19:47 Commissary Worker: NETTA MEASUREMENT RESULTS: Intervals: Rate: 61 ND: 138 QRSD: 82 QT: 422 QTc: 424 [place]: P: 46 ND: 138 QRS: 29 T: 36 INTERPRETIVE STATEMENTS: Normal sinus rhythm Low voltage QRS Borderline ECG No previous ECG available for comparison Electronically Signed On 01-26-22 17:32:25 CDT by Naman Simpson
== END 2022-01-23 10:28 | disposition home or self-care (01) ==
LOC: ER 05:59
DX: R51.9 Headache, unspecified (principal); M54.2 Cervicalgia; I10 Essential (primary) hypertension; Z88.5 Allergy status to narcotic agent; Z20.822 Contact with and (suspected) exposure to COVID-19
CPT/HCPCS: 36415; 80053; 82947; 83605; 85025; 85610; 85730; 87040; 87804; 93005; 96374; 99284; J2270; U0003

== ENCOUNTER 2022-03-19 13:37 | Emergency (ER) | payer SELFPAY ==
--- OUTSIDE RECORDS SUMMARY | 2022-03-19 13:40 | XMS REPORT | Continuity of Care Document ---
:[address] [facility] t Address [address] [place] [address] Care Team Providers Name Role Phone DENISE DOMINIQUE Primary Care Physician Unavailable Hoa Hussein NP Attending Clinician HOA HUSSEIN Attending Clinician Unavailable Shaun Amin Attending Clinician Unavailable Physician, No Primary or Family Admitting Clinician Unavaila ble Payers Payer Name Policy Type Policy Number Effective Date Expiration Date S ourdesirae BAEZETTER FROM [id number] 2021 [facility] 00:00:00 Problems Condition Condition Condition Status Onset Resolution Last Treating Co mments Source Name Details Category Date Date Treatment Clinician Date No known No known Disease Unive rs active active ity of problems problems [place] [facility] Allergies, Adverse Reactions, Alerts Allergy Allergy Status Severity Reaction(s) Onset Inactive Treating Comm ents Source Name Type Date Date Clinician Tramadol Propensi Active Unknown - HEADACHE U nivers ty to See comments 04-30 ity of adverse 00:00: [place] reaction 00 Medical s Branch TRAMADOL DRUG Active Unknown-Cmnt Un devin INGREDI 04-30 ity of 00:00: [place] 00 Medical Branch No Known DA Active U [facility] Allergie 01-28 Clear s 00:00: [place] 00 [facility] No Known DA Active U [facility] Allergie 01-28 Clear s 00:00: [place] 00 [facility] Hay Propensi Active Unknown - 2011-08 [...] History SDOH University o f Alcohol Frequency [place] [facility] History SDOH University o f Alcohol Std [place] [facility] Drinks Branch History SDOH University o f Alcohol Binge [place] [facility] Exposure to Not sure University SARS-CoV-2 [place] [facility] (event) Branch Alcohol intake 2012-05-09 2012-05-09 Current University of 00:00:00 00:00:00 non-drinker of [facility] alcohol Branch (finding) Alcohol Comment 2012-05-09 2012-05-09 used to drink as Uni versity of 00:00:00 00:00:00 a teenager [facility] Sex Ass[birth year] At [birth year] Universit y of 00:00:00 00:00:00 [facility] Smoking Status Start Date Stop Date Source Never smoker [facility] Medications Ordered Filled Start Stop Current Ordering Indication Dosage Frequency Signature Comments Components Source Medication Medication Date Date Medication? Clinician (SIG) Name Name ALPRAZolam 2011-08 Yes 1mg Take 1 mg Un devin (XANAX) 1 0-06 by mouth 3 ity of mg tablet 12:50: (three) [place] 15 times Medical daily. Branch gabapentin 2011-08 [...] mouth ity of mg tablet 12:50: daily. [place] [address] Medical Branch omeprazole 2011-08 Yes 40mg Take 40 mg U nivers (PRILOSEC) 0-06 by mouth ity o f 40 mg 12:50: daily. [place] capsule 15 [facility] HYDROcodone 2011-08 Yes 1{tbl} Take 1 Tab [...] mouth ity of 0.52 gram 12:50: daily. [place] capsule 15 [facility] traZODONE 2011-08 Yes 150mg Take 150 Uni vers (DESYREL) 0-06 mg by ity of 100 mg 12:50: mouth at [place] tablet 15 bedtime. [facility] Vital Signs Vital Name Observation Time Observation Value Comments Source Systolic blood 2021-05-01 03:00:00 123 mm[Hg] Univer sity of pressure [facility] Diastolic blood 2021-05-01 03:00:00 78 mm[Hg] [facility] Heart rate 2021-05-01 03:00:00 78 /min [facility] Respiratory rate 2021-05-01 03:00:00 26 /min [facility] Oxygen saturation in 2021-05-01 03:00:00 98 /min [facility] Arterial blood by [facility] Pulse oximetry Branch Body temperature 2021-05-01 01:44:00 37.56 Vandana [facility] Body height 2021-05-01 01:44:00 177.8 cm [facility] Body weight 2021-05-01 01:44:00 83.915 kg [facility] BMI 2021-05-01 01:44:00 26.54 kg/m2 [facility] Procedures Procedure Date / Time Performed Performing Clinician Sourc e MAGNESIUM 2021-05-01 02:33:00 Hoa Hussein [facility] TROPONIN I 2021-05-01 02:33:00 Hoa Hussein [facility] COMP. METABOLIC PANEL 2021-05-01 02:33:00 Hoa Husseine [facility] ([id number]) [facility] CBC WITH DIFF 2021-05-01 02:33:00 Hoa Hussein [facility] URINALYSIS 2021-05-01 02:33:00 Hoa Hussein [facility] N-TERMINAL PRO-BNP 2021-05-01 02:33:00 Hoa Hussein [facility] NOTICE OF PRIVACY 2021-05-01 01:37:44 Doctor Unassigned, [facility] Branch CONSENT/REFUSAL FOR 2021-05-01 01:37:01 Doctor Unassigned, No [facility] AND Name Medical Branch TREATMENT Encounters Start End Encounter Admission Attending Care Care Encounter Source Date/Time Date/Time Type Type Clinicians Facility Department ID 2021-04-30 2021-04-30 Emergency [facility] [id number] Univers 20:49:00 23:18:00 Hoa [facility] [place] [id number] [id number] [facility] zaki 084 Branch 2021-04-30 2021-04-[address] [facility] ERT [id number] Univers 20:49:00 23:18:00 HOA valdez [facility] 2021-01-28 2021-01-28 Emergency EM Nwoye, [facility] [id number] [facility] 18:49:00 21:59:00 Shaun [id number] [facility] Results Test Description Test Time Test Comments Results Result Comments Source SJOGREN'S SS-B ANTIBODY 2022-01-08 06:45:28 Test Item Value Reference Range Interpretation Comme nts SJOGREN'S SS-B ANTIBODY (test code = 10984) <0.2 AI <1.0 SJOGREN'S SS-A [id number] 06:45:28 Test Item Value Reference Range Interpretation Comments SJOGREN'S SS-A <0.2 AI <1.0 UNLESS OTHER TARIQ ANTIBODY (test code = INDICA RIMA, ALL TESTING 52506) PERFORMED [facility] PATHOLOGY [employer]. [address] [place] [address] MEÑO OLIVEROS DIRECTOR: LUIS OLSON M.D. CLIA NUMBER [id number] [facility] ACCREDITATION N O. [id number] TROPONIN [id number] 03:09:09 Test Item Value Reference Interpretation Comments Range TROPONIN I (test 0.001 ng/mL See_Comment [Automated code = 4343441441) message] The system which generated this result [...] biotin. Lab Interpretation Normal (test code = 99021-4) [facility] [id number] 03:06:10 Test Item Value Reference Range Interpretation Comments NT-proBNP (test code 296 pg/mL See_Comment H [Autom ated = 7432555158) message] The system which generated this result transmitted reference range : <=125. The reference range was not used to interpret this result as normal/abnormal . LIAN (test code = LIAN) Biotin has been reported to cause a negative bias, interpret results relative to patient's use of biotin. Lab Interpretation Abnormal (test code = 85522-4) [facility] (63986)2021-05-01 02:59:06 Test Item Value Reference Range Interpretation Comments NA (test code = 138 mmol/L 135-145 8414369720) K (test code = 3.9 mmol/L 3.5-5.0 8247178914) CL (test code = 104 mmol/L 98-108 4347932528) CO2 TOTAL (test code = 26 mmol/L 23-31 0910137717) AGAP (test code = 2-16 5191230005) BUN (test code = 24 mg/dL 7-23 H 9284936635) GLUCOSE (test code = 100 mg/dL 70-110 3399999512) CREATININE (test code = 0.80 mg/dL 0.50-1.04 7466161133) TOTAL BILI (test code = 0.4 mg/dL 0.1-1.8 9216751702) CALCIUM (test code = 9.6 mg/dL 8.6-10.6 7293705402) T PROTEIN (test code = 7.4 g/dL 6.3-8.2 5577999370) ALBUMIN (test code = 4.4 g/dL 3.5-5.0 6424931785) ALK PHOS (test code = 76 U/L 34-122 5369264970) ALTv (test code = 16 U/L 5-35 1742-6) AST(SGOT) (test code = 24 U/L 13-40 9302624201) eGFR (test code = mL/min/1.73m2 4288226449) LAIN (test code = LIAN) Association of Glomerular [...] tests). Lab Interpretation Abnormal (test code = 50587-8) [facility] 02:59:06 Test Item Value Reference Range Interpretation Comments MAGNESIUM (test code = 4964020931) 2.3 mg/dL 1.7-2.4 Lab Interpretation (test code = Normal 13790-3) [facility] WITH [id number] 02:52:46 Test Item Value Reference Range Interpretation Comments WBC (test code = See_Comment [Automated 2090-2) message] The sy stem which generated this result transmitted reference range : 4.30 - 11.10 10*3/?L. The reference range was not used to interpret this result as normal/abnormal . RBC (test code = See_Comment [Automated 739-8) message] The sy stem which generated this [...] RDW-SD (test code = 47.8 fL 39.0-49.9 77211-3) RDW-CV (test code = 14.8 % 12.0-15.5 788-0) PLT (test code = See_Comment H [Automated 267-3) message] The sy stem which generated this result transmitted reference range : 166 - 358 10*3/ ?L. The reference r radha was not used to interpret this result as normal/abnormal . MPV (test code = 10.5 fL 9.5-12.9 75719-0) NRBC/100 WBC (test See_Comment [Automat ed code = 9007732927) message] The system which generated this result transmitted reference range : 0.0 - 10.0 /100 WBCs. The refer ence range was not u sed to interpret th is result as normal/abnormal . NRBC x10^3 (test code <0.01 See_Comment [Auto mated = 8021026287) message] The s ystem which generated this result transmitted reference range : 10*3/?L. The reference range was not used to interpret this result as normal/abnormal . GRAN MAT (NEUT) % 48.8 % (test code = 770-8) IMM GRAN % (test code 0.50 % = 6443718958) LYMPH % (test code = 40.7 % 736-9) MONO % (test code = 9.6 % 5905-5) EOS % (test code = 0.0 % 713-8) BASO % (test code = 0.4 % 706-2) GRAN MAT x10^3(ANC) 3.69 10*3/uL 1.88-7.09 (test code = 9177719014) IMM GRAN x10^3 (test 0.04 10*3/uL 0.00-0.06 code = 3820148721) LYMPH x10^3 (test code 3.08 10*3/uL 1.32-3.29 = 731-0) MONO x10^3 (test code 0.73 10*3/uL 0.33-0.92 = 742-7) EOS x10^3 (test code = <0.03 0.03-0.39 L 711-2) BASO x10^3 (test code 0.03 10*3/uL 0.01-0.07 = 704-7) Lab Interpretation Abnormal (test code = 43591-3) [facility] A[facility] PELVIS [id number] 20:40:00 [facility] 1960 Sex: F Name: GIO ESTRELLA [facility] Perry : 1960 Age/S: 60 / F [address] [place] [address] Unit #: [id number] Loc: [place] [address] Phys: Shaun Amin MD Acct: [id number] Dis Date: Status: REG ER PHONE#: [phone] Exam Date: 01/28/20212018 FAX #: [phone] Reason: n/v, constipation. hx molly and EMANUEL, eval sbo EXAMS: CPT CODE: [id number] CT ABD PELVIS W/CONT 69028 CT abdomen and pelvis with contrast dated 01/28/2021 INDICATION: Nausea and vomiting. Possible small bowel obstruction. COMPARISON:None. TECHNIQUE: A CT of the abdomen pelvis was performed using helical images from the thoracic outlet through the pubic symphysis with subsequent sagittal and coronal reconstruction. IV CONTRAST: 100 cc of Isovue-300 GI CONTRAST: None. CT imaging performed at [...] evidence of acute renal collecting system obstruction orcalcified renal collecting system stone. BILIARY: The patient [...] or adenopathy. PELVIS: The patient is status post hysterectomy. The ovaries are not PAGE 1 Signed Report (CONTINUED) Name: GIO ESTRELLA [facility] Perry : 1960 Age/S: 60 / F [address] [place] [address] Blvd Unit #: [id number] Loc: [place] [address] Phys: Shaun Amin Acct: [id number] Dis Date: Status: REG ER PHONE #: [phone] Exam Date: 01/28/20212018 FAX#: [phone] Reason: n/v, constipation. hx molly and EMANUEL, eval sbo EXAMS: CPT CODE: [id number] CT ABD PELVIS W/CONT 49487 <Continued> identified and may be surgically absent. No [...] Oropeza M.D. CC: Shaun Amin MD Technologist:Akbar Marshall RT(R)(CT) CTDI: DLP: Trnscb Date/Time: 01/28/2021 (2039) tERASTO Orig Print D/T: S: 01/28/2021 (2043) PAGE 2 Signed ReportCOMPREHENSIVE METABOLIC [id number] 20:11:00 Test Item Value Reference Range Interpretation [...] 20-125 N TOTAL (test code = ALKP) [id number] 20:11:00 Test Item Value Reference Range Interpretation Comments LIPASE (test code = LIP) 44 U/L 13-57 N [id number] 20:11:00 Test Item Value Reference Range Interpretation Comments TROPONIN-I < 0.006 ng/mL 0.000-0.045 N Negative: <= 0 .045 Positive: (test code = >= 0.046 Correl ation with TROPI) serial results, other cardiac markers andclinical findings is nec essary to determine the clinicalsignifi cance of this result. Results using different metho dologies should not be c omparedto one another as linda titative results may richa y by method. COMPREHENSIVE METABOLIC [id number] 20:07:00 Test Item Value Reference Range Interpretation [...] IUnit/L 20-125 TOTAL (test code = ALKP) [id number] 20:07:00 Test Item Value Reference Range Interpretation Comments LIPASE (test code = LIP) U/L 13-57 [id number] 20:07:00 Test Item Value Reference Range Interpretation Comments TROPONIN-I < 0.006 ng/mL 0.000-0.045 N Negative: <= 0 .045 Positive: (test code = >= 0.046 Correl ation with TROPI) serial results, other cardiac markers andclinical findings is nec essary to determine the clinicalsignifi cance of this result. Results using different metho dologies should not be c omparedto one another as linda titative results may richa y by method. UA RFLX MICR CULT IF [id number] 20:00:00 Test Item Value Reference Range Interpretation [...] SQU) Indication for culture: Dysuria/FrequencySpecimen Description: CLEAN CATCHCBC W/AUTO [id number] 19:55:00 Test Item Value Reference Range Interpretation [...] (test code NO = MDIFF) CBC W/AUTO [id number] 19:52:00 Test Item Value Reference Range Interpretation [...]
[2022-03-19 14:54] LABS: Absolute Lymphocytes (CBC) 2.4 K/uL (0.7-4.9); Hematocrit 35.7 % (36.0-45.0); MCV 83.5 fL (80-100); MPV 7.9 fL (7.6-11.3); RBC Red Blood Cell Count 4.28 M/uL (3.86-4.86)
[2022-03-19 14:57] LABS: Protime INR 0.97
[2022-03-19] MEDS ORDERED: KETOROLAC 30 MG/ML INJ ONE (14:57)
[2022-03-19 15:04] LABS: Urine Blood Negative (Negative); Urine Glucose Negative (Negative); Urine Protein Negative (Negative)
--- NOTE | 2022-03-19 15:29 | RAD REPORT ---
EXAM DESCRIPTION: Viki Single View03/19/2022 2:41 pm CLINICAL HISTORY: cough COMPARISON: none FINDINGS: The lungs appear clear of acute infiltrate. The heart is normal size IMPRESSION: No acute abnormalities displayed
[2022-03-19 15:35] LABS: ALT/SGPT 19 U/L (12-78); AST/SGOT 18 U/L (15-37); Albumin 3.8 g/dL (3.4-5.0); Alkaline Phosphatase 112 U/L (45-117); BUN Blood Urea Nitrogen 14 mg/dL (7-18); Bicarbonate 30 mmol/L (21-32); Bilirubin Total 0.2 mg/dL (0.2-1.0); Glomerular Filtration Rate 84 ml/min (=/>90); Glucose Level 92 mg/dL (74-106); Magnesium 2.4 mg/dL (1.8-2.4); NT PRO-BNP 151 pg/mL (<125); Potassium 3.3 mmol/L (3.5-5.1); Protein, Total 7.6 g/dL (6.4-8.2); Sodium Level 134 mmol/L (136-145)
[2022-03-19 15:41] LABS: Bilirubin Direct < 0.1 mg/dL (0-0.2); Troponin High Sensitivity < 3.0 pg/mL (<58.9)
[2022-03-19 15:50] LABS: Urine Bacteria None Seen /HPF (<20); Urine RBC <5 /HPF (None Seen)
--- NOTE | 2022-03-19 16:19 | ER ---
Nurse's Notes [facility] Name: Debbie Albright Age: 61 yrs Sex: Female : 1960 Arrival Date: 03/19/2022 Time: 13:40 Bed 9 Private MD: Diagnosis: Chest pain, unspecified;Cough Presentation: 03/19 13:54 Chief complaint: Intermittent left sided chest pain with inspiration x 2-3 weeks. Also hb reports dry cough. Coronavirus screen: At this time, the client does not indicate any symptoms associated with coronavirus-19. Ebola Screen: No symptoms or risks identified at this time. Initial Sepsis Screen: Does the patient meet any 2 criteria? No. Patient's initial sepsis screen is negative. Does the patient have a suspected source of infection? No. Patient's initial sepsis screen is negative. Risk Assessment: Do you want to hurt yourself or someone else? Patient reports no desire to harm self or others. Onset of symptoms was March 2022. 13:54 Method Of Arrival: Ambulatory hb 13:54 Acuity: GRADY 3 hb Triage Assessment: 15:10 General: Appears in no apparent distress. Behavior is calm, cooperative. Pain: iw Complains of pain in chest. Historical: - Allergies: 13:55 Tramadol HCl; hb - PMHx: 13:55 Anxiety; depressive disorder; Gastroesophageal reflux disease; Hypertensive disorder; hb sarcoydosis; - PSHx: 13:55 Cholecystectomy; Tonsillectomy; hb - Immunization history:: Adult Immunizations up to date. - Social history:: Smoking status: Patient denies any tobacco usage or history of. Screenin:51 Abuse screen: Denies threats or abuse. Denies injuries from another. Nutritional iw screening: No deficits noted. Tuberculosis screening: No symptoms or risk factors identified. Fall Risk IV access (20 points). Assessment: 15:10 General: Appears in no apparent distress. Behavior is calm, cooperative. Pain: iw Complains of pain in chest Pain: Pain began. Cardiovascular: Patient's skin is warm and dry. Respiratory: Respiratory effort is even, unlabored, Respiratory pattern is regular, symmetrical. GI: Abdomen is non-distended. Vital Signs: 13:54 BP 145 / 85; Pulse 75; Resp 20; Temp 97.9; Pulse Ox 100% on R/A; Weight 72.57 kg; hb Height 5 ft. (152.40 cm); Pain 1/10; 13:54 Body Mass Index 31.25 (72.57 kg, 152.40 cm) hb ED Course: 13:40 Patient arrived in ED. mr 13:46 Gutierrez Williamson PA is PHCP. cp 13:46 Luis E Ji DO is Attending Physician. cp 13:55 Triage completed. hb 13:55 Arm band placed on. hb 14:33 María Buchanan, RN is Primary Nurse. iw 14:43 CXR XRAY In Process Unspecified. EDMS 14:58 Initial lab(s) drawn, by me, sent to lab. COVID swab sent to lab. Inserted saline lock: em1 20 gauge in right forearm, using aseptic technique. Blood collected. 16:51 IV discontinued, intact, bleeding controlled, No redness/swelling at site. Pressure iw dressing applied. Administered Medications: 14:53 Drug: Ketorolac 15 mg Route: IVP; Site: right forearm; iw 16:00 Follow up: Response: No adverse reaction iw 16:46 Drug: Potassium Effervescent Tablet 50 mEq Route: PO; iw 16:50 Follow up: Response: No adverse reaction iw Medication: 15:10 VIS not applicable for this client. iw Outcome: 16:19 Discharge ordered by MD. cp 16:51 Discharged to home ambulatory. iw 16:51 Condition: good 16:51 Discharge instructions given to patient, Instructed on discharge instructions, follow up and referral plans. Demonstrated understanding of instructions, follow-up care, medications, Prescriptions given X 16:52 Patient left the ED. iw Signatures: Dispatcher [employer] [facility] Mylene Tavares mr María Buchanan, RN Carlos Kaur em1 Gutierrez Williamson PA PA cp Baxter, Heather, RN RN hb
--- NOTE | 2022-03-19 16:19 | EDPHYS ---
Physician Documentation [facility] Name: Debbie Albright Age: 61 yrs Sex: Female : 1960 Arrival Date: 03/19/2022 Time: 13:40 Bed 9 Private MD: ED Physician Luis E Ji HPI: 03/19 14:25 This 61 yrs old Female presents to ER via Ambulatory with complaints of Chest Pain. cp 14:25 The patient or guardian reports chest pain that is located primarily in the anterior cp chest wall, left. 14:25 Onset: 3 week(s) ago. Associated signs and symptoms: Pertinent positives: cough, cp Pertinent negatives: abdominal pain, diaphoresis, lower extremity pain, lower extremity swelling, palpitations, shortness of breath, syncope. The chest pain is described as sharp. Duration: The patient or guardian reports multiple episodes, that wax and wane. Modifying factors: the symptoms are aggravated by deep breath. Severity of pain: in the emergency department the pain is unchanged despite home interventions. Historical: - Allergies: 13:55 Tramadol HCl; hb - PMHx: 13:55 Anxiety; depressive disorder; Gastroesophageal reflux disease; Hypertensive disorder; hb sarcoydosis; - PSHx: 13:55 Cholecystectomy; Tonsillectomy; hb - Immunization history:: Adult Immunizations up to date. - Social history:: Smoking status: Patient denies any tobacco usage or history of. ROS: 14:30 Constitutional: Negative for body aches, chills, fever, poor PO intake. cp 14:30 Eyes: Negative for injury, pain, redness, and discharge. cp 14:30 ENT: Negative for drainage from ear(s), ear pain, sore throat, difficulty swallowing, difficulty handling secretions. 14:30 Cardiovascular: Positive for chest pain, Negative for edema, palpitations. 14:30 Respiratory: Positive for cough, with no reported sputum, Negative for shortness of breath, wheezing. 14:30 Abdomen/GI: Negative for abdominal pain, nausea, vomiting, and diarrhea. 14:30 : Negative for urinary symptoms. 14:30 Neuro: Negative for altered mental status, dizziness, headache, numbness, syncope, weakness. 14:30 All other systems are negative. Exam: 14:33 Constitutional: The patient appears in no acute distress, alert, awake, cp non-diaphoretic, non-toxic, well developed, well nourished. 14:33 Head/Face: Normocephalic, atraumatic. cp 14:33 Eyes: Periorbital structures: appear normal, Conjunctiva: normal, no exudate, no injection, Sclera: no appreciated abnormality, Lids and lashes: appear normal, bilaterally. 14:33 ENT: External ear(s): are unremarkable, Nose: is normal, Mouth: Lips: moist, Oral mucosa: pink and intact, moist, Posterior pharynx: Airway: no evidence of obstruction, patent, swelling, is not appreciated, erythema, is not appreciated, exudate, is not appreciated. 14:33 Neck: ROM/movement: is normal, is supple, without pain, no range of motions limitations, no meningismus, no nuchal rigidity. 14:33 Chest/axilla: Inspection: normal, Palpation: crepitus, is not appreciated, tenderness, that is mild, of the anterior aspect of left upper chest. 14:33 Cardiovascular: Rate: normal, Rhythm: regular, Edema: is not appreciated, JVD: is not appreciated. 14:33 Respiratory: the patient does not display signs of respiratory distress, Respirations: normal, no use of accessory muscles, no retractions, labored breathing, is not present, Breath sounds: are clear throughout, no decreased breath sounds, no stridor, no wheezing. 14:33 Abdomen/GI: Inspection: abdomen appears normal, Palpation: abdomen is soft and non-tender, in all quadrants. 14:33 Back: CVA tenderness, is absent. 14:33 Skin: cellulitis, is not appreciated, no rash present. 14:33 Neuro: Orientation: to person, place \\T\\ time. Mentation: is normal, Motor: moves all fours, strength is normal, Sensation: is normal. 15:55 ECG was reviewed by the Attending Physician. cp Vital Signs: 13:54 BP 145 / 85; Pulse 75; Resp 20; Temp 97.9; Pulse Ox 100% on R/A; Weight 72.57 kg; hb Height 5 ft. (152.40 cm); Pain 1/10; 13:54 Body Mass Index 31.25 (72.57 kg, 152.40 cm) hb MDM: 14:40 Patient medically screened. cp 15:00 Differential diagnosis: acute myocardial infarction, acute pericarditis, chest wall cp pain, costochondritis, pericarditis, pleurisy, pneumonia, pneumothorax, pulmonary embolus, stable angina, unstable angina. 16:19 Data reviewed: vital signs, nurses notes, lab test result(s), EKG, radiologic studies, cp plain films. 16:19 Data interpreted: Pulse oximetry: on room air is 100 %. Interpretation: normal. Test cp interpretation: by ED physician or midlevel provider: ECG, plain radiologic studies. Counseling: I had a detailed discussion with the patient and/or guardian regarding: the historical points, exam findings, and any diagnostic results supporting the discharge/admit diagnosis, lab results, radiology results, the need for outpatient follow up, an bill of materials clerk, to return to the emergency department if symptoms worsen or persist or if there are any questions or concerns that arise at home. Response to treatment: the patient's symptoms have mildly improved after treatment, and as a result, I will discharge patient. Special discussion: Based on the patient's history, exam, and Dx evaluation, there is no indication for emergent intervention or inpatient Tx. It is understood by the patient/guardian that if the Sx's persist or worsen they need to return immediately for re-evaluation. 03/19 14:23 Order name: Basic Metabolic Panel; Complete Time: 15:53 cp 03/19 15:54 Interpretation: Normal except: NA 134; K 3.3; GFR 84. cp 03/19 14:23 Order name: CBC with Diff; Complete Time: 15:53 cp 03/19 15:54 Interpretation: Normal except: HGB 11.8; HCT 35.7. cp 03/19 14:23 Order name: LFT's; Complete Time: 15:53 cp 03/19 15:54 Interpretation: Normal except: GLOB 3.8; A/G 1.0. cp 03/19 14:23 Order name: Magnesium; Complete Time: 15:53 cp 03/19 14:23 Order name: NT PRO-BNP; Complete Time: 15:53 cp 03/19 14:23 Order name: PT-INR; Complete Time: 15:53 cp 03/19 14:13 Order name: CXR XRAY; Complete Time: 15:53 iw 03/19 14:23 Order name: Troponin HS; Complete Time: 15:53 cp 03/19 14:23 Order name: EKG; Complete Time: 14:27 cp 03/19 14:23 Order name: COVID-19 SARS RT PCR (Document "Date of Onset" if Symptomatic); Complete cp Time: 15:53 03/19 14:23 Order name: Urine Microscopic Only; Complete Time: 15:53 cp 03/19 15:05 Order name: Urine Dipstick-Ancillary; Complete Time: 15:53 EDMS 03/19 14:23 Order name: Cardiac monitoring; Complete Time: 15:53 cp 03/19 14:23 Order name: EKG - Nurse/Tech; Complete Time: 15:52 cp 03/19 14:23 Order name: IV Saline Lock; Complete Time: 14:58 cp 03/19 14:23 Order name: Labs collected and sent; Complete Time: 14:58 cp 03/19 14:23 Order name: O2 Per Protocol; Complete Time: 15:53 cp 03/19 14:23 Order name: O2 Sat Monitoring; Complete Time: 15:53 cp 03/19 14:23 Order name: Urine Dipstick-Ancillary (obtain specimen); Complete Time: 14:58 cp EC:55 Rate is 61 beats/min. Rhythm is regular. MT interval is normal. QRS interval is normal. cp QT interval is normal. T waves are Inverted in lead V2. Interpreted by me. Reviewed by me. Administered Medications: 14:53 Drug: Ketorolac 15 mg Route: IVP; Site: right forearm; iw 16:00 Follow up: Response: No adverse reaction iw 16:46 Drug: Potassium Effervescent Tablet 50 mEq Route: PO; iw 16:50 Follow up: Response: No adverse reaction iw Disposition: 21:31 Co-signature as Attending Physician, Luis E Ji DO I agree with the assessment and ms3 plan of care. Disposition Summary: 03/19/22 16:19 Discharge Ordered Location: Home cp Problem: new cp Symptoms: have improved cp Condition: Stable cp Diagnosis - Chest pain, unspecified cp - Cough cp Followup: cp - With: Private Physician - When: 1 - 2 days - Reason: Recheck today's complaints Discharge Instructions: - Discharge Summary Sheet cp - Nonspecific Chest Pain, Adult cp - Aspirin and Your Heart cp - Cough, Adult cp Forms: - Medication Reconciliation Form cp - Thank You Letter cp - Antibiotic Education cp - Prescription Opioid Use cp Prescriptions: - Tessalon Perles 100 mg Oral Capsule - take 1 capsule by ORAL route every 8 hours As needed; 15 capsule; Refills: 0, cp Product Selection Permitted - Diclofenac Sodium 75 mg Oral tablet,delayed release (DR/EC) - take 1 tablet by ORAL route 2 times per day; 20 tablet; Refills: 0, Product cp Selection Permitted - Zithromax Z-Shailesh 250 mg Oral Tablet - take 1 tablet by ORAL route as directed for 5 days Day 1 - take two (2) tablets cp one time. Day 2, 3, 4 , 5 take one (1) tablet once daily.; 6 tablet; Refills: 0, Product Selection Permitted Signatures: Dispatcher [employer] EDMaría Howard RN RN Gutierrez Royal PA PA cp Baxter, Heather, RN RN Luis E Moser DO DO ms3
[2022-03-19] MEDS ORDERED: POTASSIUM 25 MEQ EFFERV TAB ONE (16:36)
[2022-03-19 17:04] VITALS: BP 145/85; TEMP 97.9; O2SAT 100
--- NOTE | 2022-03-21 14:30 | EKG ---
Test Date: 2022-03-19 Test Time: 15:54:03 [employer] Analyst: VIOLET MEASUREMENT RESULTS: Intervals: Rate: 61 [place]: 142 QRSD: 80 QT: 424 QTc: 426 [place]: P: 50 [place]: 142 QRS: 39 T: 42 INTERPRETIVE STATEMENTS: Normal sinus rhythm Low voltage QRS Cannot rule out Anterior infarct, age undetermined Abnormal ECG Compared to ECG 01/23/2022 07:19:47 Myocardial infarct finding now present Electronically Signed On 03-21-22 14:28:55 CDT by Naman Simpson
== END 2022-03-19 16:52 | disposition home or self-care (01) ==
LOC: ER 13:37
DX: R07.89 Other chest pain (principal); R05.9 Cough, unspecified; I10 Essential (primary) hypertension; Z88.5 Allergy status to narcotic agent
CPT/HCPCS: 36415; 71045; 80048; 80076; 81003; 81015; 83735; 83880; 84484; 85025; 85610; 93005; 96374; 99284; U0003

== ENCOUNTER 2022-07-12 21:01 | Emergency (ER) | payer SELFPAY ==
--- OUTSIDE RECORDS SUMMARY | 2022-07-12 21:05 | XMS REPORT | Continuity of Care Document ---
:1960 Author Organization [facility] t Address [address] [place] [address] Care Team Providers Name Role Phone TRIPTIEN RODRIGUEZPANA Primary Care Physician Unavailable Hoa Hussein NP Attending Clinician HOA HUSSEIN Attending Clinician Unavailable Shaun Amin Attending Clinician Unavailable Physician, No Primary or Family Admitting Clinician Unavaila ble Payers Payer Name Policy Type Policy Number Effective Date Expiration Date S mannie MONROER FROM [id number] 2021 [facility] [place] 2[place] 00:00:00 Problems Condition Condition Condition Status Onset Resolution Last Treating Co mments Source Name Details Category Date Date Treatment Clinician Date No known No known Disease Unive rs active active ity of problems problems [facility] Allergies, Adverse Reactions, Alerts Allergy Allergy Status Severity Reaction(s) Onset Inactive Treating Comm ents Source Name Type Date Date Clinician traMADol Propensi Active HCl - ty to 8-17 Oral adverse 00:00: reaction 00 to drug Trazodon Propensi Active e ty to 6-06 adverse 00:00: reaction 00 to drug Tramadol Propensi Active Unknown - HEADACHE U nivers ty to See comments 04-30 ity of adverse 00:00: [place] reaction 00 Medical s Branch TRAMADOL DRUG Active Unknown-Cmnt Un devin INGREDI 04-30 ity of 00:00: [place] 00 Medical Branch No Known DA Active U [facility] Allergie 01-28 Clear s 00:00: [place] [address] [place] [address] No Known DA Active U [facility] Allergie 6-27 Clear s 00:00: [place] 00 [facility] Hay Propensi Active Unknown - 2011-08 [...] History SDOH University o f Alcohol Std [place] [facility] Drinks Branch History SDOH University o f Alcohol Binge [place] [facility] Exposure to Not sure University of SARS-CoV-2 [place] [facility] (event) Branch Alcohol intake 2012-05-09 2012-05-09 Current University of 00:00:00 00:00:00 non-drinker of [facility] alcohol Branch (finding) Alcohol Comment 2012-05-09 2012-05-09 used to drink as Uni versity of 00:00:00 00:00:00 a teenager [facility] Sex Ass[birth year] At [birth year] Universit y of 00:00:00 00:00:00 [facility] Smoking Status Start Date Stop Date Source Never smoker [facility] Medications Ordered Filled Start Stop Current Ordering Indication Dosage Frequency Signature Comments Components Source Medication Medication Date Date Medication? Clinician (SIG) Name Name TAKE 08/05 No 1 TABLET BY 8-23 MOUTH ONCE 00:00: A DAY 00 NEEDED TAKE 2021-0 No CAPSULE BY 8-18 MOUTH 3 00:00: TIMES A DAY 00 take 1 2021-0 No 40 tablet 8-17 daily 00:00: 00 take 1 2021-0 No 40 tablet 8-17 daily 00:00: 00 Dose 2021-0 No Unknown 8 00:00: 00 Dose 2021-0 No Unknown 8 00:00: 00 triamcinolo 2021-0 No 1% ne 6-06 acetonide 00:00: 0.1 % 00 topical cream Dose 2021-0 No Unknown 6 00:00: 00 triamcinolo 2021-0 No 1% ne 6-06 acetonide 00:00: 0.1 % 00 topical cream Dose No Unknown 6-06 00:00: 00 Dose 2021-0 No Unknown 4- 00:00: 00 Dose 2021-0 No Unknown 4 00:00: 00 Dose 0 No Unknown 3 00:00: 00 Dose 2021-0 No Unknown 3 00:00: 00 Dose 2021-0 No Unknown 3 00:00: 00 Dose 0 No Unknown 3 00:00: 00 ALPRAZolam 2011-08 Yes 1mg Take 1 mg [...] mouth ity of mg tablet 12:50: daily. [place] [address] Medical Branch omeprazole 2011-08 Yes 40mg Take 40 mg U nivers (PRILOSEC) 0-06 by mouth ity o f 40 mg 12:50: daily. [place] capsule 15 Medical Branch HYDROcodone 2011-08 Yes 1{tbl} Take [...] mouth ity of 0.52 gram 12:50: daily. [place] capsule 15 Medical Branch traZODONE 2011-08 Yes 150mg Take 150 Uni vers (DESYREL) 0-06 mg by ity of 100 mg 12:50: mouth at [place] tablet 15 bedtime. Medical Branch Vital Signs Vital Name Observation Time Observation Value Comments Source Systolic blood 2021-05-01 03:00:00 123 mm[Hg] Univer sity of pressure [facility] Diastolic blood 2021-05-01 03:00:00 78 mm[Hg] Unive rsity [facility] Heart rate 2021-05-01 03:00:00 78 /min [facility] Respiratory rate 2021-05-01 03:00:00 26 /min [facility] Oxygen saturation in 2021-05-01 03:00:00 98 /min [facility] Arterial blood by [facility] Pulse oximetry Branch Body temperature 2021-05-01 01:44:00 37.56 Vandana [facility] Body height 2021-05-01 01:44:00 177.8 cm [facility] Body weight 2021-05-01 01:44:00 83.915 kg [facility] BMI 2021-05-01 01:44:00 26.54 kg/m2 [facility] BP Systolic 2022-07-04 13:28:00 128 mm[Hg] BP Diastolic 2022-07-04 13:28:00 80 mm[Hg] Weight Measured 2022-07-04 13:28:00 168.00 pounds Height Measured 2022-07-04 13:28:00 60.00 inches Body Temperature 2022-07-04 13:28:00 97.20 degrees Heart Rate 2022-07-04 13:28:00 77.00 /min Respiratory Rate 2022-07-04 13:28:00 19.00 /min BP Systolic 2022-03-20 08:50:00 121 mm[Hg] BP Diastolic 2022-03-20 08:50:00 73 mm[Hg] Weight Measured 2022-03-20 08:50:00 161.80 pounds Height Measured 2022-03-20 08:50:00 60.00 inches Body Temperature 2022-03-20 08:50:00 97.50 degrees Heart Rate 2022-03-20 08:50:00 57.00 /min Respiratory Rate 2022-03-20 08:50:00 BP Systolic 2022-01-07 10:25:00 135 mm[Hg] BP Diastolic 2022-01-07 10:25:00 82 mm[Hg] Weight Measured 2022-01-07 10:25:00 161.00 pounds Height Measured 2022-01-07 10:25:00 60.00 inches Body Temperature 2022-01-07 10:25:00 97.70 degrees Heart Rate 2022-01-07 10:25:00 68.00 /min Respiratory Rate 2022-01-07 10:25:00 BP Systolic 2021-11-01 16:04:00 122 mm[Hg] BP Diastolic 2021-11-01 16:04:00 80 mm[Hg] Weight Measured 2021-11-01 16:04:00 167.40 pounds Height Measured 2021-11-01 16:04:00 60.00 inches Body Temperature 2021-11-01 16:04:00 98.20 degrees Heart Rate 2021-11-01 16:04:00 70.00 /min Respiratory Rate 2021-11-01 16:04:00 Procedures Procedure Date / Time Performed Performing Clinician Sourc e MAGNESIUM 2021-05-01 02:33:00 Hoa Hussein [facility] [place] TROPONIN I 2021-05-01 02:33:00 Hoa Hussein [facility] COMP. METABOLIC PANEL 2021-05-01 02:33:00 Hoa Hussein [facility] ([id number]) [facility] CBC WITH DIFF 2021-05-01 02:33:00 Hoa Hussein [facility] URINALYSIS 2021-05-01 02:33:00 Hoa Hussein [facility] N-TERMINAL PRO-BNP 2021-05-01 02:33:00 Hoa Hussein [facility] NOTICE OF PRIVACY 2021-05-01 01:37:44 Doctor Unassigned, No Univ [facility] PRACTICES Name [facility] CONSENT/REFUSAL FOR 2021-05-01 01:37:01 [facility], [facility] AND Name Medical Branch TREATMENT Plan of Care Planned Activity Planned Date Details Comments Source Goal Plan of Care Note [code = 70797-5] Goal Plan of Care Note [code = 96044-3] Goal Plan of Care Note [code = 33357-2] Goal Plan of Care Note [code = 19958-4] Goal Plan of Care Note [code = 28216-4] Goal Plan of Care Note [code = 20503-5] Goal Plan of Care Note [code = 87615-3] Goal Plan of Care Note [code = 30316-9] Goal Plan of Care Note [code = 52145-1] Goal Plan of Care Note [code = 29961-1] Goal Plan of Care Note [code = 33666-4] Goal Plan of Care Note [code = 82554-4] Goal Plan of Care Note [code = 44777-7] Goal Plan of Care Note [code = 01453-4] Goal Plan of Care Note [code = 93486-9] Goal Plan of Care Note [code = 43850-0] Goal Plan of Care Note [code = 63482-4] Goal Plan of Care Note [code = 21192-5] Goal Plan of Care Note [code = 20890-8] Goal Plan of Care Note [code = 21555-7] Goal Plan of Care Note [code = 51296-6] Goal Plan of Care Note [code = 07337-8] Goal Plan of Care Note [code = 83431-4] Goal Plan of Care Note [code = 30787-8] Goal Plan of Care Note [code = 27060-6] Encounters Start End Encounter Admission Attending Care Care Encounter Source Date/Time Date/Time Type Type Clinicians Facility Department ID 2022-07-04 2022-07-04 Outpatient [facility] [id number] Carlos 13:28:05 13:28:05 [id number] F Marques 2022-07-04 2022-07-04 Outpatient [id number] 00:00:00 00:00:00 Visit [id number] 2022-07-03 2022-07-03 Outpatient CHRISTIANNE FAUST [id number] Carlos 14:51:32 14:51:32 [id number] F Marques 2022-03-20 2022-03-20 Outpatient [id number] 00:00:00 00:00:00 Visit [id number] -[id number] [id number] 2021-04-30 2021-04-30 Emergency [facility] [id number] Univers 20:49:00 23:18:00 Hoa Hurtado [id number] josé miguel neri [place] [id number] [facility] [id number] [place] [id number] Branch 2021-04-30 2021-04-30 Emergency X [facility] ERT [id number] Univers 20:49:00 23:18:00 HOA valdez [facility] 2021-01-28 2021-01-28 Emergency EM Brennan, KEVIN SANJUANITA [id number] [facility] 18:49:00 21:59:00 Shaun 65 Cl [facility] Results Test Description Test Time Test Comments Results Result Comments Source HEMOGLOBIN A1c 2022-03-21 14:49:55 Test Item Value Reference Range Interpretation Comme nts HEMOGLOBIN A1c (test code = 85057) 5.6 % 4.2-5.6 LIPID [id number] 05:46:20 Test Item Value Reference Range Interpretation Comments CHOLESTEROL (test 225 MG/DL <200 H code = 2210) TRIGLYCERIDES (test 205 MG/DL <150 H code = 2232) HDL CHOLESTEROL (test 52 MG/DL >39 code = 2220) CALC LDL CHOL (test 139 MG/DL <100 H NOTE: C ALCULATED LDL code = 2237) IS BASED ON ELLIS-BERRIOS METHOD WHICHINCLUDES ADJUSTABLE TRIGLYCERIDE:VL DL CHOLESTEROL RAT IO.THIS FACTOR VARIES B Y MEASURED TRIGLY CERIDE AND NON-HDLCHOL ESTEROL CONCENTRATIONS WITH INCREASED CALCU LATED LDL SEENIN HIGH ER TRIGLYCERIDE OR LOWER NON-HDL SPECIME NS. FOR MOREINFORMATION , SEE CLIENT ANNOUNCE MENT AT [email or web address] RISK RATIO LDL/HDL 2.67 RATIO <3.22 (test code = 2238) COMPREHENSIVE METABOLIC [id number] 05:46:20 Test Item Value Reference Range Interpretation Comments GLUCOSE (test code = 97 MG/DL 70-99 2217) BUN (test code = 15 MG/DL 8-23 2207) CREATININE (test 0.78 MG/DL 0.60-1.30 code = 2213) eGFR (2020 CKD-EPI) 86 >60 (test code = 61445) ML/MIN/1.73 CALC BUN/CREAT (test 19 RATIO 6-28 code = 2235) SODIUM (test code = 137 MEQ/L 671-557 3549) POTASSIUM (test code 5.1 MEQ/L 3.5-5.4 = 2227) CHLORIDE (test code 98 MEQ/L 95-107 = 2214) CARBON DIOXIDE (test 29 MEQ/L 19-31 code = 2205) CALCIUM (test code = 10.0 MG/DL 8.5-10.5 2208) PROTEIN, TOTAL (test 6.7 G/DL 6.1-8.3 code = 2228) ALBUMIN (test code = 4.4 G/DL 3.5-5.2 2200) CALC GLOBULIN (test 2.3 G/DL 1.9-3.7 code = 2239) CALC A/G RATIO (test 1.9 RATIO 1.0-2.6 code = 223) BILIRUBIN, TOTAL <0.2 MG/DL See_Comment [Automated message] (test code = 2206) The [employer] 25eight which generated this result transmitted ref erence range: <=1.2. T he reference range was not used to int erpret this result as normal/abnormal . ALKALINE PHOSPHATASE 113 U/L 40-140 (test code = 2203) AST (test code = 12 U/L 9-40 2217) ALT (test code = 12 U/L 5-40 UNLESS OTH ERWISE 2218) INDICATED, ALL TESTING PERFORM ED ATCLINICAL PATH [facility] LAB[facility], [place]. [address] [place] [address] [facility] DIRECTOR: LUIS OLSON M.D. CLIA NUMBER [id number] CAP ACCREDITATION N O. [id number] HEMOGLOBIN [id number] 00:00:00 Test Item Value Reference Range Interpretation Comments HEMOGLOBIN A1c (test code = 82016) 5.6 % HEMOGLOBIN [id number] 00:00:00 Test Item Value Reference Range Interpretation Comments HEMOGLOBIN A1c (test code = 73278) 5.6 % HEMOGLOBIN [id number] 00:00:00 Test Item Value Reference Range Interpretation Comments HEMOGLOBIN A1c (test code = 39421) 5.6 % LIPID [id number] 00:00:00 Test Item Value Reference Range Interpretation Comments CHOLESTEROL (test code = 2210) 225 MG/DL TRIGLYCERIDES (test code = 2232) 205 MG/DL HDL CHOLESTEROL (test code = 2220) 52 MG/DL CALC LDL CHOL (test code = 2237) 139 MG/DL RISK RATIO LDL/HDL (test code = 2.67 RATIO 2238) LIPID [id number] 00:00:00 Test Item Value Reference Range Interpretation Comments CHOLESTEROL (test code = 2210) 225 MG/DL TRIGLYCERIDES (test code = 2232) 205 MG/DL HDL CHOLESTEROL (test code = 2220) 52 MG/DL CALC LDL CHOL (test code = 2237) 139 MG/DL RISK RATIO LDL/HDL (test code = 2.67 RATIO 2238) COMPREHENSIVE METABOLIC [id number] 00:00:00 Test Item Value Reference Range Interpretation Comments GLUCOSE (test code = 2217) 97 MG/DL BUN (test code = 2208) 15 MG/DL CREATININE (test code = 2214) 0.78 MG/DL eGFR (2020 CKD-EPI) (test code 86 ML/MIN/1.73 = 76855) CALC BUN/CREAT (test code = 19 RATIO 2235) SODIUM (test code = 2231) 137 MEQ/L POTASSIUM (test code = 2228) 5.1 MEQ/L CHLORIDE (test code = 2215) 98 MEQ/L CARBON DIOXIDE (test code = 29 MEQ/L 2205) CALCIUM (test code = 2209) 10.0 MG/DL PROTEIN, TOTAL (test code = 6.7 G/DL 2228) ALBUMIN (test code = 2201) 4.4 G/DL CALC GLOBULIN (test code = 2.3 G/DL 2240) CALC A/G RATIO (test code = 1.9 RATIO 2234) BILIRUBIN, TOTAL (test code = <0.2 MG/DL 2206) ALKALINE PHOSPHATASE (test 113 U/L code = 2204) AST (test code = 2218) 12 U/L ALT (test code = 2219) 12 U/L COMPREHENSIVE METABOLIC [id number] 00:00:00 Test Item Value Reference Range Interpretation Comments GLUCOSE (test code = 2217) 97 MG/DL BUN (test code = 2208) 15 MG/DL CREATININE (test code = 2214) 0.78 MG/DL eGFR (2020 CKD-EPI) (test code 86 ML/MIN/1.73 = 39385) CALC BUN/CREAT (test code = 19 RATIO 2235) SODIUM (test code = 2231) 137 MEQ/L POTASSIUM (test code = 2228) 5.1 MEQ/L CHLORIDE (test code = 2215) 98 MEQ/L CARBON DIOXIDE (test code = 29 MEQ/L 2205) CALCIUM (test code = 2209) 10.0 MG/DL PROTEIN, TOTAL (test code = 6.7 G/DL 2228) ALBUMIN (test code = 220) 4.4 G/DL CALC GLOBULIN (test code = 2.3 G/DL 2239) CALC A/G RATIO (test code = 1.9 RATIO 2233) BILIRUBIN, TOTAL (test code = <0.2 MG/DL 2206) ALKALINE PHOSPHATASE (test 113 U/L code = 2204) AST (test code = 2218) 12 U/L ALT (test code = 2219) 12 U/L SJOGREN'S SS-B [id number] 06:45:28 Test Item Value Reference Range Interpretation Comments SJOGREN'S SS-B ANTIBODY (test code = <0.2 AI <1.0 56613) SJOGREN'S SS-A [id number] 06:45:28 Test Item Value Reference Range Interpretation Comments SJOGREN'S SS-A <0.2 AI <1.0 UNLESS OTHER TARIQ ANTIBODY (test code = INDICA RIMA, ALL TESTING 48562) PER[facility]MED [facility] [address] [facility], [place] [address] [place] [address] DIRECTOR: LUIS OLSON M.D. CLIA NUMBER [id number] CAP ACCREDITATION N O. [id number] SJOGREN\\2022-01-08 00:00:00 Test Item Value Reference Range Interpretation Comments SJOGREN'S SS-B ANTIBODY (test code = <0.2 AI 13365) SJOGREN\\2022-01-08 00:00:00 Test Item Value Reference Range Interpretation Comments SJOGREN'S SS-B ANTIBODY (test code = <0.2 AI 30960) SJOGREN\\2022-01-08 00:00:00 Test Item Value Reference Range Interpretation Comments SJOGREN'S SS-A ANTIBODY (test code = <0.2 AI 50228) SJOGREN\\2022-01-08 00:00:00 Test Item Value Reference Range Interpretation Comments SJOGREN'S SS-A ANTIBODY (test code = <0.2 AI 70946) SJOGREN\\2022-01-08 00:00:00 Test Item Value Reference Range Interpretation Comments SJOGREN'S SS-B ANTIBODY (test code = <0.2 AI 89131) SJOGREN\\2022-01-08 00:00:00 Test Item Value Reference Range Interpretation Comments SJOGREN'S SS-B ANTIBODY (test code = <0.2 AI 59181) SJOGREN\\2022-01-08 00:00:00 Test Item Value Reference Range Interpretation Comments SJOGREN'S SS-A ANTIBODY (test code = <0.2 AI 20098) SJOGREN\\2022-01-08 00:00:00 Test Item Value Reference Range Interpretation Comments SJOGREN'S SS-A ANTIBODY (test code = <0.2 AI 64739) TROPONIN [id number] 03:09:09 Test Item Value Reference Interpretation Comments Range TROPONIN I (test 0.001 ng/mL See_Comment [Automated code = 8538268420) message] The system which generated this result [...] biotin. Lab Interpretation Normal (test code = 66417-5) [facility] [id number] 03:06:10 Test Item Value Reference Range Interpretation Comments NT-proBNP (test code 296 pg/mL See_Comment H [Autom ated = 4547952672) message] The system which generated this result transmitted reference range : <=125. The reference range was not used to interpret this result as normal/abnormal . LIAN (test code = LIAN) Biotin has been reported to cause a negative bias, interpret results relative to patient's use of biotin. Lab Interpretation Abnormal (test code = 18778-4) [facility]. METABOLIC PANEL (34638)2021-05-01 02:59:06 Test Item Value Reference Range Interpretation Comments NA (test code = 138 mmol/L 135-145 0288720271) K (test code = 3.9 mmol/L 3.5-5.0 1103067326) CL (test code = 104 mmol/L 98-108 5338477222) CO2 TOTAL (test code = 26 mmol/L 23-31 1699843987) AGAP (test code = 2-16 9595480733) BUN (test code = 24 mg/dL 7-23 H 7326532181) GLUCOSE (test code = 100 mg/dL 70-110 5481885902) CREATININE (test code = 0.80 mg/dL 0.50-1.04 9553816372) TOTAL BILI (test code = 0.4 mg/dL 0.1-1.7 6059596940) CALCIUM (test code = 9.6 mg/dL 8.6-10.6 3973684009) T PROTEIN (test code = 7.4 g/dL 6.3-8.2 0475426623) ALBUMIN (test code = 4.4 g/dL 3.5-5.0 5437981173) ALK PHOS (test code = 76 U/L 34-122 4641047691) ALTv (test code = 16 U/L 5-35 1742-6) AST(SGOT) (test code = 24 U/L 13-40 0965087562) eGFR (test code = mL/min/1.73m2 1056047199) LIAN (test code = LIAN) Association of [...] tests). Lab Interpretation Abnormal (test code = 36419-1) [facility] 02:59:06 Test Item Value Reference Range Interpretation Comments MAGNESIUM (test code = 8144856362) 2.3 mg/dL 1.7-2.4 Lab Interpretation (test code = Normal 83286-4) [facility] WITH [id number] 02:52:46 Test Item Value Reference Range Interpretation Comments WBC (test code = See_Comment [Automated 6912-2) message] The sy stem which generated this result transmitted reference range : 4.30 - 11.10 10*3/?L. The reference range was not used to interpret this result as normal/abnormal . RBC (test code = See_Comment [Automated 291-5) message] The sy stem which generated this [...] RDW-SD (test code = 47.8 fL 39.0-49.9 51309-9) RDW-CV (test code = 14.8 % 12.0-15.5 788-0) PLT (test code = See_Comment H [Automated 777-3) message] The sy stem which generated this result transmitted reference range : 166 - 358 10*3/ ?L. The reference r radha was not used to interpret this result as normal/abnormal . MPV (test code = 10.5 fL 9.5-12.9 24875-6) NRBC/100 WBC (test See_Comment [Automat ed code = 9150999477) message] The system which generated this result transmitted reference range : 0.0 - 10.0 /100 WBCs. The refer ence range was not u sed to interpret th is result as normal/abnormal . NRBC x10^3 (test code <0.01 See_Comment [Auto mated = 3851950226) message] The s ystem which generated this result transmitted reference range : 10*3/?L. The reference range was not used to interpret this result as normal/abnormal . GRAN MAT (NEUT) % 48.8 % (test code = 770-8) IMM GRAN % (test code 0.50 % = 7455497557) LYMPH % (test code = 40.7 % 736-9) MONO % (test code = 9.6 % 5905-5) EOS % (test code = 0.0 % 713-8) BASO % (test code = 0.4 % 706-2) GRAN MAT x10^3(ANC) 3.69 10*3/uL 1.88-7.09 (test code = 1183487550) IMM GRAN x10^3 (test 0.04 10*3/uL 0.00-0.06 code = 8680159265) LYMPH x10^3 (test code 3.08 10*3/uL 1.32-3.29 = 731-0) MONO x10^3 (test code 0.73 10*3/uL 0.33-0.92 = 742-7) EOS x10^3 (test code = <0.03 0.03-0.39 L 711-2) BASO x10^3 (test code 0.03 10*3/uL 0.01-0.07 = 704-7) Lab Interpretation Abnormal (test code = 86939-9) [facility] [place] ABD PELVIS [id number] 20:40:00 [facility] 1960 Sex: F Name: GIO ESTRELLA [facility] : 1960 Age/S: 60 / F [address] [place] [address] Unit #: [id number] Loc: [place] [address] Phys: Shaun Amin MD Acct: [id number] Dis Date: Status: REG ER PHONE #: [phone] Exam Date: 01/28/20212018 FAX #: [phone] Reason: n/v, constipation. hx molly and EMANUEL, eval sbo EXAMS: CPT CODE: [id number] CT ABD PELVIS W/CONT 04345 CT abdomen and pelvis with contrast dated 01/28/2021 INDICATION: Nausea and vomiting. Possible small bowel obstruction. COMPARISON: None. TECHNIQUE: A CT of the abdomen pelvis was performed using helical images from the thoracic outlet through the pubic symphysis with subsequent sagittal and coronal reconstruction. IV CONTRAST: 100 cc of Isovue-300 GI CONTRAST: None. CT imaging performed at this location utilizes radiation doseoptimization techniques which include one or more of the followin) Automated exposure control; 2) Adjustment of mA and/or kV; 3) Use of iterative reconstructive technique. CT radiation dose DLP (mGy-cm): 775. FINDINGS: SOLID ORGANS: No acute CT abnormalities of the liver, spleen, pancreas, adrenalglands or kidneys are detected. There is no CT evidence of acute renal collecting system obstructionor calcified renal collecting system stone. BILIARY: The patient is status post cholecystectomy. 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 BOWEL: Bowel assessment is limited by the absence of bowel contrast. No gross abnormalities of the stomach or duodenum areidentified. No small bowel dilatation is present to suggest obstruction. The appendix is well visualized and is not acutely inflamed. Several diverticula of the sigmoid colon are noted. There is no matthew dence of acute diverticulitis, acute inflammatory colonic wall thickening or colonic obstruction. PERITONEUM: There is no evidence of free intraperitoneal air or significant free intraperitoneal fluid.RETROPERITONEUM: The abdominal aorta demonstrates no evidence of aneurysm or dissection. There is noevidence of retroperitoneal mass or adenopathy. PELVIS: The patient is status post hysterectomy. Theovaries are not PAGE 1 Signed Report (CONTINUED) Name: GIO ESTRELLA [facility] : 1960 Age/S: 60 / F [address] [place] [address] Unit #: [id number] Loc: [place] [address] Phys: Shaun Amin MD Acct: [id number] Dis Date: Status: REG ER PHONE #: [phone] Exam Date: 01/28/20212018 FAX #: [phone] Reason: n/v, constipation. hx molly and EMANUEL, eval sbo EXAMS: CPT CODE: [id number] CT ABD PELVIS W/CONT 86461 (Continued) identified and may be surgically absent. No adnexal masses orenlarged pelvic lymph nodes are identified. The bladder has an unremarkable appearance. LOWER CHEST:The lung bases appear clear of acute disease. ADDITIONAL FINDINGS: None. IMPRESSION: 1. No acute CT abnormalities of the abdomen or pelvis are detected. SL: 131 at 2039 Reported and signed by: Nhan Oropeza M.D. CC: Shaun Amin MD Technologist:Akbar Marshall, RT(R)(CT) CTDI: DLP: Trnscb Date/Time: 01/28/2021 (2039) [facility] Orig Print D/T: S: 01/28/2021 (2043) PAGE 2 Signed ReportCOMPREHENSIVE METABOLIC [id number] 20:11:00 Test Item Value Reference Range Interpretation [...] 20-125 N TOTAL (test code = ALKP) [id number] 20:11:00 Test Item Value Reference Range Interpretation Comments LIPASE (test code = LIP) 44 U/L 13-57 N [id number] 20:11:00 Test Item Value Reference Range Interpretation [...] may richa y by method. COMPREHENSIVE METABOLIC [id number] 20:07:00 Test Item Value Reference Range Interpretation [...] IUnit/L 20-125 TOTAL (test code = ALKP) [id number] 20:07:00 Test Item Value Reference Range Interpretation Comments LIPASE (test code = LIP) U/L 13-57 [id number] 20:07:00 Test Item Value Reference Range Interpretation [...] by method. UA RFLX MICR CULT IF [id number] 20:00:00 Test Item Value Reference Range Interpretation [...] for culture: Dysuria/FrequencySpecimen Description: CLEAN CATCHCBC W/AUTO [id number] 19:55:00 Test Item Value Reference Range Interpretation [...] (test code NO = MDIFF) CBC W/AUTO [id number] 19:52:00 Test Item Value Reference Range Interpretation [...]
[2022-07-12] MEDS ORDERED: MORPHINE 4 MG/ML SYR ONE (21:59)
[2022-07-12] MEDS ORDERED: ONDANSETRON 4 MG/2 ML VIAL ONE (21:59)
[2022-07-12 22:13] LABS: Absolute Lymphocytes (CBC) 1.4 K/uL (0.7-4.9); Hematocrit 37.4 % (36.0-45.0); Lymphocytes % 9.6 % (15.3-44.8); MCV 83.6 fL (80-100); MPV 8.4 fL (7.6-11.3); RBC Red Blood Cell Count 4.47 M/uL (3.86-4.86)
[2022-07-12 22:22] LABS: BUN Blood Urea Nitrogen 18 mg/dL (7-18); Bicarbonate 29 mmol/L (21-32); Glomerular Filtration Rate 73 ml/min (=/>90); Glucose Level 111 mg/dL (74-106); Potassium 4.1 mmol/L (3.5-5.1); Sodium Level 136 mmol/L (136-145)
[2022-07-12 22:23] LABS: Troponin High Sensitivity < 3.0 pg/mL (<58.9)
--- NOTE | 2022-07-12 22:45 | RAD REPORT ---
EXAM DESCRIPTION: RAD - Chest Single View - 07/12/2022 10:00 pm CLINICAL HISTORY: CHEST PAIN COMPARISON: Portable 03/19/2022 TECHNIQUE: AP portable chest image was obtained 07/12/2022 10:00 pm . FINDINGS: Lungs are clear. Interstitial markings match comparison. No hilar mass or lymphadenopathy. Heart and vasculature are normal. No measurable pleural effusion and no pneumothorax. No acute bony abnormality seen. No acute aortic findings suspected. IMPRESSION: No acute cardiopulmonary process. No significant change from comparison study.
[2022-07-12] MEDS ORDERED: LIDOCAINE VISCOUS 2% SOLN 15 ML UDC ONE (23:17)
[2022-07-12] MEDS ORDERED: MAGNES/ALUMIN/SIMET 30ML UCUP ONE (23:17)
[2022-07-12] MEDS ORDERED: FAMOTIDINE 20 MG/2 ML VIAL IV ONE (23:17)
[2022-07-13] MEDS ORDERED: CIPROFLOXACIN HCL 500 MG TAB ONE (02:13)
--- NOTE | 2022-07-13 04:05 | EDPHYS ---
Physician Documentation [facility] Name: Debbie Albright Age: 62 yrs Sex: Female : 1960 Arrival Date: 07/12/2022 Time: 21:02 Bed Treatment Private MD: ED Physician Silvino Rene HPI: 07/13 03:10 This 62 yrs old Female presents to ER via EMS with complaints of Chest Pain. kdr 03:10 Patient presents to the ED with chest pain that radiates to her back. She states that kdr she has had significant nausea with vomiting associated with this pain. She has not had pain like this before her began abruptly several hours prior to arrival. She is otherwise stable in the ED.. Onset: The symptoms/episode began/occurred suddenly, just prior to arrival, 3 hour(s) ago. Severity of symptoms: At their worst the symptoms were moderate severe in the emergency department the symptoms are unchanged. The patient has not experienced similar symptoms in the past, Patient states she has not had pain like this before at least to the severity in the same region. The patient has not recently seen a physician. Historical: - Allergies: 07/12 21:03 Tramadol HCl; ld1 - PMHx: 21:03 Anxiety; depressive disorder; Gastroesophageal reflux disease; Hypertensive disorder; ld1 sarcoydosis; - PSHx: 21:03 Cholecystectomy; Tonsillectomy; ld1 - Immunization history:: Adult Immunizations up to date, Client reports receiving the 2nd dose of the Covid vaccine. - Social history:: Smoking status: Patient denies any tobacco usage or history of. Patient/guardian denies using alcohol. ROS: 07/13 03:10 Constitutional: Negative for fever, chills, and weight loss, Eyes: Negative for injury, kdr pain, redness, and discharge, ENT: Negative for injury, pain, and discharge, Neck: Negative for injury, pain, and swelling, Cardiovascular: Negative for chest pain, palpitations, and edema, Respiratory: Negative for shortness of breath, cough, wheezing, and pleuritic chest pain, Back: Negative for injury and pain, : Negative for injury, bleeding, discharge, and swelling, MS/Extremity: Negative for injury and deformity, Skin: Negative for injury, rash, and discoloration, Neuro: Negative for headache, weakness, numbness, tingling, and seizure activity. Psych: Negative for depression, anxiety, suicide ideation, homicidal ideation, and hallucinations, Allergy/Immunology: Negative for hives, rash, and allergies, Endocrine: Negative for neck swelling, polydipsia, polyuria, polyphagia, and marked weight changes, Hematologic/Lymphatic: Negative for swollen nodes, abnormal bleeding, and unusual bruising. Cardiovascular: Positive for chest pain, Negative for edema, orthopnea, palpitations, paroxysmal nocturnal dyspnea. Abdomen/GI: Positive for abdominal pain, nausea and vomiting, Negative for abdominal cramps, abdominal distension, anorexia, dysphagia, hematemesis, black/tarry stool, rectal pain, rectal bleeding, bowel incontinence. Exam: 03:10 Constitutional: This is a well developed, well nourished patient who is awake, alert, kdr and in no acute distress. Head/Face: Normocephalic, atraumatic. Eyes: Pupils equal round and reactive to light, extra-ocular motions intact. Lids and lashes normal. Conjunctiva and sclera are non-icteric and not injected. Cornea within normal limits. Periorbital areas with no swelling, redness, or edema. Neck: Trachea midline, no thyromegaly or masses palpated, and no cervical lymphadenopathy. Supple, full range of motion without nuchal rigidity, or vertebral point tenderness. No Meningismus. Chest/axilla: Normal chest wall appearance and motion. Nontender with no deformity. No lesions are appreciated. Respiratory: Lungs have equal breath sounds bilaterally, clear to auscultation and percussion. No rales, rhonchi or wheezes noted. No increased work of breathing, no retractions or nasal flaring. Abdomen/GI: Soft, non-tender, with normal bowel sounds. No distension or tympany. No guarding or rebound. No evidence of tenderness throughout. Back: No spinal tenderness. No costovertebral tenderness. Full range of motion. Skin: Warm, dry with normal turgor. Normal color with no rashes, no lesions, and no evidence of cellulitis. MS/ Extremity: Pulses equal, no cyanosis. Neurovascular intact. Full, normal range of motion. Neuro: Awake and alert, GCS 15, oriented to person, place, time, and situation. Cranial nerves II-XII grossly intact. Motor strength 5/5 in all extremities. Sensory grossly intact. Cerebellar exam normal. Normal gait. Psych: Awake, alert, with orientation to person, place and time. Behavior, mood, and affect are within normal limits. 03:10 Cardiovascular: Rate: normal, Rhythm: regular, Pulses: no pulse deficits are appreciated, Heart sounds: normal, Edema: is not appreciated. Vital Signs: 07/12 21:02 BP 161 / 58; Pulse 84; Resp 18; Temp 97.6(TE); Pulse Ox 100% on R/A; Weight 81.65 kg; ld1 Height 5 ft. 6 in. (167.64 cm); Pain 7/10; 12 00:38 BP 127 / 95; Pulse 88; Resp 14; Pulse Ox 100% ; hb 03:00 BP 106 / 61; Pulse 84; Resp 19 S; Pulse Ox 98% on R/A; ha1 04:00 BP 105 / 60; Pulse 82; Resp 19 S; Pulse Ox 98% on R/A; ha1 07/12 21:02 Body Mass Index 29.05 (81.65 kg, 167.64 cm) ld1 MDM: 03:07 Data reviewed: vital signs, nurses notes, lab test result(s), radiologic studies. kdr Counseling: I had a detailed discussion with the patient and/or guardian regarding: the historical points, exam findings, and any diagnostic results supporting the discharge/admit diagnosis, lab results, radiology results, the need for outpatient follow up. ED course: I discussed the CT findings with Dr. Middleton. He opined that the CT findings were nonspecific and that they did not warrant further treatment at this time beyond antibiotics and discharge for MRCP on outpatient basis. He asks that the patient be referred to his service as an outpatient in the coming week. Patient remained stable in the ED and had nearly complete relief of any discomfort she was experiencing on arrival. She was happy with the care provided the plan for discharge and follow-up. 04:04 Patient medically screened. kdr 04:28 ED course: It was reported to me that the patient had a low-grade fever. I reevaluated kdr the patient and found her to be completely asymptomatic and without any evidence of an acute process ongoing or developing. I reevaluated her abdomen and found it to be benign without any tenderness in the epigastric or right upper quadrant area in particular. Patient was discharged in stable condition and continue to be happy with the care provided and the plan for discharge and follow-up. 07/12 21:04 Order name: Basic Metabolic Panel; Complete Time: 22:41 ld1 07/12 21:04 Order name: CBC with Diff; Complete Time: 22:41 ld1 07/12 21:04 Order name: Troponin HS; Complete Time: 22:41 ld1 07/12 21:04 Order name: XRAY Chest (1 view); Complete Time: 00:21 ld1 07/13 01:22 Order name: Troponin High Sensitivity kdr 07/12 21:04 Order name: EKG; Complete Time: 21:05 ld1 07/12 21:04 Order name: Cardiac monitoring; Complete Time: 21:12 ld1 07/12 22:52 Order name: Angio Aorta For Dissection EDMS 07/12 21:04 Order name: EKG - Nurse/Tech; Complete Time: 21:12 ld1 07/12 21:04 Order name: IV Saline Lock; Complete Time: 21:12 ld1 07/12 21:04 Order name: Labs collected and sent; Complete Time: 21:12 ld1 07/12 21:04 Order name: O2 Per Protocol; Complete Time: 21:12 ld1 07/12 21:04 Order name: O2 Sat Monitoring; Complete Time: 21:12 ld1 07/12 22:05 Order name: Labs - recollect needed; Complete Time: 22:05 hb 07/13 01:22 Order name: EKG - Nurse/Tech; Complete Time: 02:08 kdr Administered Medications: 07/12 22:04 Drug: morphine 4 mg Route: IVP; Infused Over: 4 mins; Site: left antecubital; hb 23:00 Follow up: Response: No adverse reaction; Pain is decreased kb3 22:04 Drug: Zofran (Ondansetron) 4 mg Route: IVP; Site: left antecubital; hb 23:00 Follow up: Response: No adverse reaction kb3 23:53 Drug: Pepcid (famotidine) 20 mg Route: IVP; Site: left antecubital; hb 07/13 00:31 Follow up: Response: No adverse reaction kb3 07/12 23:54 Drug: GI Cocktail without - (Maalox Suspension 30 ml, Lidocaine Liquid 2 % 15 hb ml) Route: PO; 07/13 00:31 Follow up: Response: No adverse reaction kb3 02:22 Drug: Cipro (ciprofloxacin) 500 mg Route: PO; vc1 Disposition Summary: 07/13/22 04:04 Discharge Ordered Location: Home kdr Problem: new kdr Symptoms: have improved kdr Condition: Stable kdr Diagnosis - Epigastric pain kdr - Chest pain, unspecified kdr Followup: kdr - With: Private Physician - When: 2 - 3 days - Reason: If symptoms return, Further diagnostic work-up, Recheck today's complaints, Continuance of care, Re-evaluation by your physician Followup: kdr - With: Wilfredo Middleton MD - When: 2 - 3 days - Reason: If symptoms return, Further diagnostic work-up, Recheck today's complaints, Continuance of care, Re-evaluation by your physician Discharge Instructions: - Discharge Summary Sheet kdr - Abdominal Pain, Adult kdr - Nonspecific Chest Pain, Adult, [id number] kdr Forms: - Medication Reconciliation Form kdr - Thank You Letter kdr - Antibiotic Education kdr - Prescription Opioid Use kdr Prescriptions: - Flagyl 500 mg Oral Tablet - take 1 tablet by ORAL route every 12 hours for 7 days; 14 tablet; Refills: 0, kdr Product Selection Permitted - Zofran 4 mg Oral Tablet - take 1 tablet by ORAL route every 12 hours As needed; 6 tablet; Refills: 0, kdr Product Selection Permitted - Cipro 500 mg Oral Tablet - take 1 tablet by ORAL route every 12 hours for 7 days; 14 tablet; Refills: 0, kdr Product Selection Permitted - Pepcid 20 mg Oral Tablet - take 1 tablet by ORAL route once daily; 20 tablet; Refills: 0, Product kdr Selection Permitted Signatures: Dispatcher [employer] EDUT Silvino Rene MD MD kdr Crystal Kearns, RN RN Estefanía Rodríguez RN RN ld1 Anila Lagos RN RN vc1 Barbara Long RN RN kb3 Corrections: (The following items were deleted from the chart) 07/12 22:52 22:41 Chest Angio+CT.RAD.BRZ ordered. EDUT EDMS
--- NOTE | 2022-07-13 04:05 | ER ---
Nurse's Notes [facility] Name: Debbie Albright Age: 62 yrs Sex: Female : 1960 Arrival Date: 07/12/2022 Time: 21:02 Bed Treatment Private MD: Diagnosis: Epigastric pain;Chest pain, unspecified Presentation: 07/12 21:02 Chief complaint: Patient states: Chest pain - radiating to the back. C/O Nausea. ld1 Coronavirus screen: At this time, the client does not indicate any symptoms associated with coronavirus-19. Ebola Screen: No symptoms or risks identified at this time. Initial Sepsis Screen: Does the patient meet any 2 criteria? No. Patient's initial sepsis screen is negative. Does the patient have a suspected source of infection? No. Patient's initial sepsis screen is negative. Risk Assessment: Do you want to hurt yourself or someone else? Patient reports no desire to harm self or others. Onset of symptoms was July 12, 2022. 21:02 Method Of Arrival: EMS: [facility] ld1 21:02 Acuity: GRADY 3 ld1 21:07 Care prior to arrival: Medication(s) given: Nitroglycerin, 0.4 mg SL zofran 4 mg. ld1 Triage Assessment: 21:03 General: Appears in no apparent distress. comfortable, Behavior is calm, cooperative, ld1 appropriate for age. Pain: Complains of pain in chest Pain radiates to back Pain currently is 7 out of 10 on a pain scale. Quality of pain is described as sharp, shooting, throbbing, Pain began suddenly. EENT: No signs and/or symptoms were reported regarding the EENT system. Neuro: Level of Consciousness is awake, alert, obeys commands, Oriented to person, place, time, situation. Cardiovascular: Capillary refill < 3 seconds Patient's skin is warm and dry. Respiratory: Airway is patent Respiratory effort is even, unlabored. GI: Abdomen is round non-distended. GI: Reports nausea. : No signs and/or symptoms were reported regarding the genitourinary system. Derm: No signs and/or symptoms reported regarding the dermatologic system. Musculoskeletal: No signs and/or symptoms reported regarding the musculoskeletal system. Historical: - Allergies: 21:03 Tramadol HCl; ld1 - PMHx: 21:03 Anxiety; depressive disorder; Gastroesophageal reflux disease; Hypertensive disorder; ld1 sarcoydosis; - PSHx: 21:03 Cholecystectomy; Tonsillectomy; ld1 - Immunization history:: Adult Immunizations up to date, Client reports receiving the 2nd dose of the Covid vaccine. - Social history:: Smoking status: Patient denies any tobacco usage or history of. Patient/guardian denies using alcohol. Screenin:05 Abuse screen: Denies threats or abuse. Denies injuries from another. Nutritional hb screening: No deficits noted. Tuberculosis screening: No symptoms or risk factors identified. Fall Risk None identified. Assessment: 22:05 Reassessment: Patient appears in no apparent distress at this time. Patient and/or hb family updated on plan of care and expected duration. Pain level reassessed. Patient is alert, oriented x 3, equal unlabored respirations, skin warm/dry/pink. 07/13 00:00 Reassessment: Patient and/or family updated on plan of care and expected duration. Pain vc1 level reassessed. Patient is alert, oriented x 3, equal unlabored respirations, skin warm/dry/pink. Pain: Complains of pain in xiphoid area. 01:00 Reassessment: Patient and/or family updated on plan of care and expected duration. Pain vc1 level reassessed. Patient is alert, oriented x 3, equal unlabored respirations, skin warm/dry/pink. Patient states feeling better. Patient states symptoms have improved. 02:00 Reassessment: No changes from previously documented assessment. Patient and/or family vc1 updated on plan of care and expected duration. Pain level reassessed. 03:00 Reassessment: Patient and/or family updated on plan of care and expected duration. Pain ha1 level reassessed. Patient is alert, oriented x 3, equal unlabored respirations, skin warm/dry/pink. 04:00 Reassessment: Patient and/or family updated on plan of care and expected duration. Pain ha1 level reassessed. Patient is alert, oriented x 3, equal unlabored respirations, skin warm/dry/pink. Patient denies pain at this time. 04:28 Reassessment: Patient and/or family updated on plan of care and expected duration. Pain ha1 level reassessed. Patient is alert, oriented x 3, equal unlabored respirations, skin warm/dry/pink. awaiting for transportation to pick her up. Vital Signs: 07/12 21:02 BP 161 / 58; Pulse 84; Resp 18; Temp 97.6(TE); Pulse Ox 100% on R/A; Weight 81.65 kg; ld1 Height 5 ft. 6 in. (167.64 cm); Pain 7/10; 12 00:38 BP 127 / 95; Pulse 88; Resp 14; Pulse Ox 100% ; hb 03:00 BP 106 / 61; Pulse 84; Resp 19 S; Pulse Ox 98% on R/A; ha1 04:00 BP 105 / 60; Pulse 82; Resp 19 S; Pulse Ox 98% on R/A; ha1 12 21:02 Body Mass Index 29.05 (81.65 kg, 167.64 cm) ld1 ED Course: 07/12 21:02 Patient arrived in ED. ld1 21:03 Triage completed. ld1 21:03 Arm band placed on right wrist. ld1 21:06 Maintain EMS IV. Dressing intact. Good blood return noted. Gauge \T\ site: 20g LAC. ld1 21:10 Silvino Rene MD is Attending Physician. kdr 21:52 Basic Metabolic Panel Sent. zm 21:52 CBC with Diff Sent. zm 21:52 Troponin HS Sent. zm 22:02 XRAY Chest (1 view) In Process Unspecified. EDMS 22:05 Patient has correct armband on for positive identification. Client placed on continuous hb cardiac and pulse oximetry monitoring. NIBP monitoring applied. 22:29 Barbara Long RN is Primary Nurse. kb3 23:[address] kb3 23:52 Angio Aorta For Dissection In Process Unspecified. EDMS 12 04:03 Wilfredo Middleton MD is Referral Physician. kdr 04:29 No provider procedures requiring assistance completed. IV discontinued, intact, ha1 bleeding controlled, No redness/swelling at site. Pressure dressing applied. Administered Medications: 07/12 22:04 Drug: morphine 4 mg Route: IVP; Infused Over: 4 mins; Site: left antecubital; hb 23:00 Follow up: Response: No adverse reaction; Pain is decreased kb3 22:04 Drug: Zofran (Ondansetron) 4 mg Route: IVP; Site: left antecubital; hb 23:00 Follow up: Response: No adverse reaction kb3 23:53 Drug: Pepcid (famotidine) 20 mg Route: IVP; Site: left antecubital; hb 07/13 00:31 Follow up: Response: No adverse reaction kb3 07/12 23:54 Drug: GI Cocktail without - (Maalox Suspension 30 ml, Lidocaine Liquid 2 % 15 hb ml) Route: PO; 07/13 00:31 Follow up: Response: No adverse reaction kb3 02:22 Drug: Cipro (ciprofloxacin) 500 mg Route: PO; vc1 Medication: 07/12 22:05 VIS not applicable for this client. hb Outcome: 07/13 04:04 Discharge ordered by . kdr 04:29 Discharged to home ambulatory. ha1 04:29 Condition: stable 04:29 Discharge instructions given to patient, Instructed on discharge instructions, follow up and referral plans. medication usage, Demonstrated understanding of instructions, follow-up care, medications, Prescriptions given X 4. 04:32 Patient left the ED. ha1 Signatures: Dispatcher [employer] EDMS Silvino Rene MD MD kdr Crystal Kearns RN RN Estefanía Rodríguez RN RN ld1 Anila Lagos RN RN vc1 Verna Garay Heidy, RN RN ha1 Barbara Long, RN RN kb3 Corrections: (The following items were deleted from the chart) 07/12 21:06 21:05 Inserted saline lock: 20 gauge in left antecubital area, using aseptic technique. ld1 ld1
[2022-07-13 17:15] VITALS: TEMP 97.6
[2022-07-13 17:18] VITALS: O2SAT 98
[2022-07-13 17:19] VITALS: BP 105/60
--- NOTE | 2022-07-14 17:39 | RAD REPORT ---
EXAM DESCRIPTION: CT - Angio Aorta For Dissection - 07/13/2022 5:54 am CLINICAL HISTORY: 62 years, Female, chest pain COMPARISON: None. TECHNIQUE: Multiple transaxial tomograms from the thoracic and abdominal aorta from the lung apex to the ischial tuberosities performed after the administration of large bolus of IV contrast for comple te opacification of the thoracic, abdominal aorta and iliac arteries utilizing 3 mm slice thickness a t 3 mm interval reconstruction. 2-D and 3-D multiplanar reformats, volume rendering technique and maximum intensity projection images were generated and reviewed. This exam was performed according to our departmental dose-optimization protocol, which includes auto mated exposure control, adjustment of the mA and/or kV according to patient size and/or use of iterat nicole reconstruction technique. FINDINGS: Thoracic aorta: The thoracic aorta demonstrate to be within normal limits. No evidence for aneurysm/or significant di ssection allowing for motion of the aortic root. There is normal branching pattern of the great vesse ls with no significant focal areas of stenosis within the proximal aspect. Abdominal aorta: The abdominal aorta demonstrate to be unremarkable. No evidence for aneurysm/or dissection. Very mini mal atheromatous plaque dimension at the aortic bifurcation. The celiac trunk, superior mesenteric artery and inferior mesenteric artery demonstrate to be unremar kable. There are single bilateral renal arteries with no definitive evidence for significant stenosis. Iliac arteries demonstrate to be patent with no stenosis and/or occlusion. Chest: The lung parenchyma demonstrate 2 clear. No significant pulmonary nodules/masses identified. No evide nce for pneumothorax. The trachea mainstem bronchus demonstrate to be unremarkable. There is no pleural/or pericardial effu sions. The heart is normal in size. There are no coronary artery calcifications. There is no significant mediastinal and/or hilar lymphadenopathy. The axillary regions demonstrate to be clear. The bone windows demonstrate no significant skeletal lesions. Abdomen and pelvis: The liver, spleen, adrenal glands, pancreas demonstrate to be unremarkable. There is a status post cholecystectomy. There is mild prominence of the common bile duct and central biliary system. Minimal trace of air/pneumobilia is suggested within the dome right hepatic lobe perh aps related to previous sphincterotomy. Minimal edema within the portal triad perhaps related to infe ction/or inflammation/or congestion. Kidneys demonstrate normal uptake of contrast media. There is no evidence for hydronephrosis/or nephr olithiasis. Grossly the unopacified stomach, small bowel and large bowel demonstrate to be within normal limits. The appendix is normal. The urinary bladder demonstrate to be within normal limits. The uterus is absent with no adnexal mass es. No retroperitoneal lymphadenopathy. There is no evidence for ascites. The bone windows demonstrat e no significant skeletal lesions. IMPRESSION: No evidence for aneurysm and/or dissection of the thoracic or abdominal aorta. Minimal edema within the portal triad perhaps related to infection and/or inflammation and/or congest ion. Status post cholecystectomy with mild prominence of the common bile duct and central biliary system. Minimal trace of air/pneumobilia is suggested within the dome right hepatic lobe perhaps related to p revious sphincterotomy. Status post hysterectomy. Electronically signed by: Lars Gutierres MD 07/13/2022 12:33 AM GRIPPER INSTALLER Due to temporary technical issues with the PACS/Fluency reporting system, reports are being signed by the in house radiologists without review as a courtesy to insure prompt reporting. The interpreting radiologist is fully responsible for the content of the report.
--- NOTE | 2022-07-15 15:02 | EKG ---
Test Date: 2022-07-13 Test Time: 01:44:07 Bill Recapitulation Clerk: RV MEASUREMENT RESULTS: Intervals: Rate: 79 MO: 144 QRSD: 82 QT: 408 QTc: 467 [place]: P: 32 MO: 144 QRS: 37 T: 29 INTERPRETIVE STATEMENTS: Normal sinus rhythm Cannot rule out Anterior infarct, age undetermined Abnormal ECG Compared to ECG 07/12/2022 21:17:49 No significant changes Electronically Signed On 07-15-22 14:57:25 SCUBA DIVE TRAINING INSTRUCTOR by Naman Simpson
--- NOTE | 2022-07-15 15:03 | EKG ---
Test Date: 2022-07-12 Test Time: 21:17:49 Financial Institution President: BENJY MEASUREMENT RESULTS: Intervals: Rate: 71 [place]: 138 QRSD: 82 QT: 410 QTc: 445 [place]: P: 45 [place]: 138 QRS: 47 T: 30 INTERPRETIVE STATEMENTS: Normal sinus rhythm Cannot rule out Anterior infarct, age undetermined Abnormal ECG Compared to ECG 03/19/2022 15:54:03 No significant changes Electronically Signed On 07-15-22 14:57:46 RN PROGRESSIVE CARE UNIT by Naman Simpson
== END 2022-07-13 04:32 | disposition home or self-care (01) ==
LOC: ER 21:01
DX: R07.9 Chest pain, unspecified (principal); R10.13 Epigastric pain; I10 Essential (primary) hypertension; Z88.5 Allergy status to narcotic agent
CPT/HCPCS: 36415; 71045; 71275; 74175; 80048; 84484; 85025; 93005; 96374; 96375; 99284; J2405; Q9967